=== PATIENT | female | born 1955 | race Caucasian/White ===

== ENCOUNTER 2017-05-19 08:08 | Inpatient (IN) | payer BC ==
[2017-05-18 14:20] VITALS: BMI 29.5
[~2017-05-19] VITALS: Ht 162.6 cm; Wt 78.6 kg
[2017-05-19] VITALS (23 sets, daily range): BP systolic 75–177; BP diastolic 46–101; PULSE 86–115; RESP 16–99; Ht 162.6 cm; Wt 78.6 kg
[~2017-05-19 08:08] MED LIST: ATEN50TA PO; CEFAZOLIN 1 GM INJ ONE; CEFAZOLIN 2 GM/50 ML (PMX) 50 ML IVPB SCH; PROPOFOL 200 MG INJ ONE; SIMV40TA2 PO; SOD CHLORIDE 0.9% 1,000 ML IV SCH
[2017-05-19] MEDS ORDERED: IBUP-1542 PO (08:43)
[2017-05-19] MEDS ORDERED: ASPI-664 PO (08:44)
[2017-05-19] MEDS ORDERED: LOSA1TAB21 PO (08:45)
[2017-05-19] MEDS ORDERED: OMEP40CA6 PO (08:46)
[2017-05-19] MEDS ORDERED: VERA120C2 PO (08:46)
[2017-05-19] MEDS ORDERED: BUPIVACAINE 0.25% (MPF) 30 ML INJ ONE (09:42)
[2017-05-19] MEDS ORDERED: MIDAZOLAM 1 MG/ML 2 ML INJ ONE (10:47)
[2017-05-19] MEDS ORDERED: hydrALAzine 20 MG INJ ONE (11:01)
--- NOTE | 2017-05-19 11:37 | OPR ---
Date/Time of Note Date/Time of Note DATE: 05/19/17 TIME: 11:35 Operative Report Procedure Date: May 19, 2017 Preoperative Diagnosis symptomatic gallstones Postoperative Diagnosis same Operation/Procedure Performed 1. laparoscopic cholecystectomy 2. therapeutic injection of subcutaneous local anesthesia Surgeon see signature line Sexual Assault Nurse none Anesthesia Type: general Estimated Blood Loss: 0 - 10 ml's Transfusion none Specimen gallbladder Grafts/Implants none Complications none Pt Condition Post Procedure: stable Indications This is a 62-year-old female with symptomatic gallstones. She requests surgical excision. Risks alternatives benefits and percent were discussed the patient. Patient expresses understanding and consents to the operation. Procedure Description Patient taken to the OR and prepped and draped in usual sterile fashion. Surgical timeout was performed. IV antibiotics were given. Infraumbilical transverse incision was made with a 15 blade. Dissection cautery was carried into the fascia. The fascia is grasped with Stoneham's and divided with curved Jc scissors. 0 Vicryl U stitch was placed into the fascia. Blueness on trocar is introduced. Pneumoperitoneum is established. Midepigastric 12 mm optical trocar was placed under direct visualization. Right upper quadrant upper flank 5 mm optical trochars were placed under direct visualization. Upon initial inspection there are some adhesions to the gallbladder which were taken down bluntly. The gallbladder was grasped the fundus and the lateral and our direction. Cautery was used to initiate lateral dissection. This allowed mobilization and careful dissection of the cystic duct. The cystic duct and the critical view are established. The cystic duct with thickened was divided with a 35 mm echelon vascular stapler. The staple line was reinforced with clips. The cystic artery was divided with 3 clips proximal and clip distal. The gallbladder was taken of the gallbladder bed. There is good hemostasis. The gallbladder was retrieved using Endo Catch bag. Ports removed under direct physician. 0 Vicryl U stitch was tied down. Skin is closed using skin jazmin. There appears to contains local anesthesia was injected throughout the incision site. Dry dressings were applied. Yasir VELASCO May 19, 2017 11:37
[2017-05-19] MEDS ORDERED: ETOMIDATE 20 MG INJ ONE (11:41)
[2017-05-19] MEDS ORDERED: NEOSTIGMINE 3 MG/3 ML SYRINGE ONE (11:41)
[2017-05-19] MEDS ORDERED: ROCURONIUM 50 MG INJ ONE (11:41)
[2017-05-19] MEDS ORDERED: GLYCOPYRROLATE 0.4 MG INJ ONE (11:41)
[2017-05-19] MEDS ORDERED: LIDOCAINE 2% (SDV) 5 ML INJ ONE (11:41)
[2017-05-19] MEDS ORDERED: ONDANSETRON 4 MG INJ ONE (11:42)
[2017-05-19] MEDS ORDERED: HYDROCODONE/APAP (5/325) TAB PO ONE (12:00)
[2017-05-19] MEDS ORDERED: EPHEDrine SULFATE 50 MG/5 ML SYG ONE (12:13)
[2017-05-19] MEDS ORDERED: EPHEDrine SULFATE 50 MG/5 ML SYG IV PRN (12:30)
[2017-05-19] MEDS ORDERED: ALBUTEROL/IPRATROPIUM (NEB) 3 ML AMP HHN STA (13:13)
[2017-05-19] MEDS ORDERED: ALBUTEROL 0.083% (NEB) 2.5 MG/3 ML AMP ONE (13:15)
[2017-05-19] MEDS ORDERED: FUROSEMIDE 20 MG INJ IV STA (13:16)
[2017-05-19] MEDS ORDERED: FUROSEMIDE 20 MG INJ ONE (13:16)
--- NOTE | 2017-05-19 13:31 | RADRPT ---
PROCEDURE: XR Chest. CLINICAL INDICATION: Shortness of breath. Postop. TECHNIQUE: Single frontal view. COMPARISON: 06/09/2014. FINDINGS: There is a left-sided dual lead permanent pacemaker. The heart is enlarged. There is mild right basi lar atelectasis. There is left basilar air space disease consistent with atelectasis or pneumonia. T he lungs are otherwise clear. There is no pleural effusion. There is no pneumothorax. IMPRESSION: 1. Left-sided dual lead permanent pacemaker. 2. Cardiomegaly. 3. Mild right basilar atelectasis. 4. Left basilar atelectasis or pneumonia. Clinical correlation advised. 5. Otherwise unremarkable chest radiograph. RPTAT: QQ .Shalom Lara MD, MD Date Time Electronically viewed and signed by .Shalom Lara MD, MD on 05/19/2017 13:30 .R/
[2017-05-19] MEDS ORDERED: RACEPINEPHRINE 2.25%(NEB) 0.5 ML AMP ONE (13:49)
[2017-05-19] MEDS ORDERED: RACEPINEPHRINE 2.25%(NEB) 0.5 ML AMP HHN ONE (14:00)
[2017-05-19] MEDS ORDERED: ALBUTEROL 0.083% (NEB) 2.5 MG/3 ML AMP HHN PRN (14:00)
[2017-05-19] MEDS ORDERED: ALBUTEROL/IPRATROPIUM (NEB) 3 ML AMP HHN PRN (16:00)
[2017-05-19] MEDS ORDERED: ONDANSETRON 4 MG INJ IV PRN (16:00)
[2017-05-19] MEDS ORDERED: ACETAMINOPHEN 325 MG TAB PO PRN (16:00)
[2017-05-19] MEDS ORDERED: morphine 2 MG INJ IV PRN (16:00)
[2017-05-19] MEDS ORDERED: MEPERIDINE 25 MG INJ IV ONE (16:30)
[2017-05-19] MEDS ORDERED: METHYLPREDNISOLONE 125 MG INJ IV ONE (17:00)
[2017-05-19] MEDS ORDERED: ENOXAPARIN 40 MG/0.4 ML SYG SC SCH (18:00)
[2017-05-19] MEDS ORDERED: FUROSEMIDE 20 MG INJ IV ONE (18:00)
[2017-05-19 18:11] LABS: BASOPHILS % 0.2 % (0.0-2.0); EOSINOPHILS % 0.2 % (0.0-7.0); HEMATOCRIT 34.5 % (37.0-47.0); HEMOGLOBIN 11.2 g/dl (12.0-16.0); LYMPHOCYTES # 0.9 10^3/ul (0.8-2.9); LYMPHOCYTES % 8.4 % (15.0-51.0); MEAN CORPUSCULAR HEMOGLOBIN 29.3 pg (29.0-33.0); MEAN CORPUSCULAR HGB CONC 32.5 g/dl (32.0-37.0); MEAN CORPUSCULAR VOLUME 90.3 fl (82.0-101.0); MEAN PLATELET VOLUME 9.6 fl (7.4-10.4); MONOCYTE # 0.3 10^3/ul (0.3-0.9); MONOCYTES % 2.9 % (0.0-11.0); PLATELET COUNT 323 10^3/UL (140-415); RED BLOOD COUNT 3.82 10^6/ul (4.20-5.40); RED CELL DISTRIBUTION WIDTH 13.2 % (11.5-14.5); WHITE BLOOD COUNT 10.3 10^3/ul (4.8-10.8)
[2017-05-19 18:30] LABS: ALBUMIN 3.7 g/dl (3.3-4.9); ALBUMIN/GLOBULIN RATIO 1.02; BILIRUBIN,INDIRECT 0.4 mg/dl (0-1.1); BILIRUBIN,TOTAL 0.4 mg/dl (0.2-1.3); CALCIUM 8.3 mg/dl (8.4-10.2); CREATININE 0.63 mg/dl (0.44-1.00); POTASSIUM 3.7 mmol/L (3.5-5.1); TOTAL PROTEIN 7.3 g/dl (6.1-8.1)
--- NOTE | 2017-05-19 18:33 | HP ---
DATE OF ADMISSION: 05/19/2017 CHIEF COMPLAINT: Shortness of breath and hypoxemia. HISTORY OF PRESENT ILLNESS: The patient is a 62-year-old female with history of hypertension, dysli pidemia, and history of pacemaker placement. The patient has preserved LV function as far as 2D ech ocardiogram is concerned back in 2013. Current echo report is not available. The patient was broug ht into hospital today for elective laparoscopic cholecystectomy. The patient underwent laparoscopi c cholecystectomy by Dr. Escalera. Postoperatively, the patient developed hypoxemia, tachycardia and was transferred to telemetry unit. The patient denies any chest pain. Does appear short of breath and was given Lasix 10 mg and also breathing treatment. The patient has not had any temperature spike. No reported vomiting. No reported resting leg pain. No report of any acute skin rash. No wheezi ng. The patient denies cough. No focal weakness. The patient underwent chest x-ray, which reveale d mild basilar atelectasis. The patient is being admitted for further evaluation and management. PAST MEDICAL HISTORY: As stated above. Patient does have history of diastolic heart failure back i 2013, and she was seen by Dr. Trujillo at that time, but since then, patient has been seeing Dr. Elijah Alaniz from cardiac standpoint. SOCIAL HISTORY: No smoking, no alcohol. ALLERGIES: CODEINE. HOME MEDICATIONS: Reviewed. PHYSICAL EXAMINATION: GENERAL: The patient is conscious, awake, alert, follows simple commands. VITAL SIGNS: Temperature 98.1, pulse 114, respirations 23, blood pressure 104/56, O2 saturation 94% on 2 liters nasal cannula. HEENT: No eye discharge or redness. Nose and ears normal. Oropharynx examination was deferred due to face mask. NECK: No mass. CHEST: A few bibasilar rales. CARDIOVASCULAR: S1, S2 normal. Sinus tachycardia. ABDOMEN: The patient is status post laparoscopic cholecystectomy. EXTREMITIES: No pedal edema. Pedal pulses palpable. No calf tenderness. NEUROLOGIC: The patient is awake, alert, follows simple commands, moves all extremities. PREOPERATIVE LABORATORY DATA: WBC 8.5, hemoglobin 12.6, platelets 359. Sodium 143, potassium 4.5, BUN 12, creatinine 0.6, glucose 113, AST 17, ALT 24, alkaline phosphatase 104. Coagulation profile was normal. EKG revealed normal sinus rhythm, nonspecific ST-T changes. Chest x-ray was read as above. These labs were done on 05/05/2017. IMPRESSION: Acute respiratory failure, rule out pneumonia, pulmonary embolism and congestive heart failure, as well as atelectasis. Will obtain CT pulmonary angiogram. We will continue supplemental oxygen and breathing treatment and deep venous thrombosis prophylaxis with Lovenox. Will also give a dose of Lasix. Will also obtain stat CBC, CMP, ABG, and troponin. We will also obtain echocardi ogram. I spoke with Dr. Michael Eng from a pulmonary standpoint as well as Dr. Elijah Alaniz fr om cardiac standpoint for further evaluation and management. Plan of care discussed with patient's son, Abdulkadir. Continue postoperative care as per Dr. Escalera. Darrin her recommendations will depend on patient's hospital course and recommendations from consultants. Dictated By: BENITO BACA/NTS Conf#: [id number] DID#: [id number]
[2017-05-19 18:51] LABS: AADO2 Arterial 250.2 mmHg (7.0-24.0); Allen Test ACCEPTAB; Arterial COHb 0.3 % (0.0-3.0); Arterial Fraction of Oxyhgb 92.4 % (93.0-99.0); Arterial MetHb 0.4 % (0.0-1.5); Arterial Total Hemglobin 11.9 g/dl (12.0-18.0); MODE MASK - SIMPLE
[2017-05-19] MEDS: ALBUTEROL/IPRATROPIUM (NEB) 3 ML AMP HHN SCH (19:51)
[2017-05-19] MEDS ORDERED: IOHEXOL 350MG/ML 50 ML BTL ONE (20:57)
[2017-05-19] MEDS ORDERED: SOD CHLORIDE 0.9% 100 ML ONE (20:57)
[2017-05-19] MEDS ORDERED: IOHEXOL 100 ML ONE (20:57)
--- NOTE | 2017-05-19 22:06 | RADRPT ---
PROCEDURE: CTA Chest and pulmonary angiogram. CLINICAL INDICATION: Shortness of breath TECHNIQUE: CT scan of the chest and CT pulmonary angiogram was performed on a multidetector high-r esolution CT scanner. High-resolution thin slice coronal and sagittal imaging was obtained from the axial source images. No 3-D/maximum intensity projection reformatted imaging was performed. The p atient was examined following the intravenous administration of 125 cc of Omnipaque-350. The images were reviewed on a PACS workstation. The total exam CTDI equals 19.72+ 14.91 mGy, and the total exam DLP equals 538.42 mGy-cm. One or more the following dose reduction techniques were utilized: Automated exposure control, adjus tment of the mA and / or kV according to patient's size, or use of iterative reconstruction techniqu e. COMPARISON: Chest x-ray of 05/19/2017 and CTA chest of 06/10/2014 FINDINGS: Dual chamber cardiac pacemaker with battery in the left chest wall. No filling defects suggestive of emboli are seen in main, lobar or segmental pulmonary arteries. Mild atherosclerotic changes includ ing calcification in thoracic aorta. No thoracic aortic aneurysm or dissection is seen. No enlarged mediastinal lymph nodes are seen. Less than 1 cm short-axis mediastinal lymph nodes are seen. No pl eural effusion is seen. There is bilateral lower lobe and bilateral upper lobe posterior partial at electasis/consolidation. Lingular partial atelectasis/consolidation is also seen. Cholecystectomy. D egenerative changes in thoracic spine. IMPRESSION: No evidence of pulmonary emboli. Moderately large pericardial effusion. Bilateral lower lobe and carlos ateral upper lobe posterior partial atelectasis/consolidation and lingular partial atelectasis/conso lidation. Cardiac pacemaker. Please see above. Discussed with SHIVA Perla at 10:02 p.m. on 05/19/2017 . RPTAT: HJES .Sonu Clayton MD, Date Time Electronically viewed and signed by .Sonu Clayton MD, MD on 05/19/2017 22:06 .S/
[2017-05-20] VITALS (22 sets, daily range): BP systolic 102–143; BP diastolic 60–80; PULSE 69–106; RESP 14–33
[2017-05-20] MEDS: PIPER-TAZO 3.375 GM IV (PMX) 50 ML IVPB SCH ×5 (00:21→23:55)
[2017-05-20] MEDS: ALBUTEROL/IPRATROPIUM (NEB) 3 ML AMP HHN SCH ×4 (01:24→19:24)
[2017-05-20 05:08] LABS: BASOPHILS % 0.1 % (0.0-2.0); HEMATOCRIT 31.2 % (37.0-47.0); HEMOGLOBIN 10.2 g/dl (12.0-16.0); LYMPHOCYTES # 0.9 10^3/ul (0.8-2.9); LYMPHOCYTES % 8.2 % (15.0-51.0); MEAN CORPUSCULAR HEMOGLOBIN 28.9 pg (29.0-33.0); MEAN CORPUSCULAR HGB CONC 32.7 g/dl (32.0-37.0); MEAN CORPUSCULAR VOLUME 88.4 fl (82.0-101.0); MEAN PLATELET VOLUME 9.7 fl (7.4-10.4); MONOCYTE # 0.2 10^3/ul (0.3-0.9); MONOCYTES % 1.5 % (0.0-11.0); NEUTROPHILS % 89.9 % (39.0-77.0); PLATELET COUNT 299 10^3/UL (140-415); RED BLOOD COUNT 3.53 10^6/ul (4.20-5.40); RED CELL DISTRIBUTION WIDTH 13.5 % (11.5-14.5); WHITE BLOOD COUNT 11.1 10^3/ul (4.8-10.8)
[2017-05-20 05:41] LABS: CALCIUM 8.8 mg/dl (8.4-10.2); CREATININE 0.6 mg/dl (0.44-1.00); POTASSIUM 3.7 mmol/L (3.5-5.1)
[2017-05-20 05:54] LABS: TROPONIN-I 0.173 ng/ml (0.00-0.12)
[2017-05-20] MEDS: PANTOPRAZOLE (EC) 40 MG TAB PO SCH (06:01)
[2017-05-20 06:06] LABS: THYROID STIMULATING HORMONE 0.519 MIU/L (0.465-4.680)
[2017-05-20 06:17] LABS: AADO2 Arterial 460.7 mmHg (7.0-24.0); Allen Test ACCEPTAB; Arterial Base Excess 0.7 mmol/L (-3.0-3); Arterial COHb 0.3 % (0.0-3.0); Arterial Fraction of Oxyhgb 93.2 % (93.0-99.0); Arterial HCO3 24.9 mmol/L (22.0-26.0); Arterial MetHb 0.4 % (0.0-1.5); Arterial Total Hemglobin 13.9 g/dl (12.0-18.0); MODE HFNC
--- NOTE | 2017-05-20 08:58 | PN ---
Date/Time of Note Date/Time of Note DATE: 05/20/17 TIME: 08:57 Assessment/Plan VTE Prophylaxis VTE Prophylaxis Intervention: SCD's Lines/Catheters IV Catheter Type (from Nrs): Saline Lock Assessment/Plan Chief Complaint/Hosp Course s/p lap kristina with some shivering and evaluation for shortness of breath patient with multiple medical problems with pacemaker CT scan for pe protocol showed no pe Problems: Assessment/Plan doing well from surgical standpoint and ok to start diet ok to d/c from surgical standpoint Subjective 24 Hr Interval Summary Free Text/Dictation doing well from surgical standpoint, no issues Exam/Review of Systems Vital Signs Vitals Vital Signs Date Time Temp Pulse Resp B/P Pulse Ox O2 Delivery O2 Flow Rate FiO2 05/20/17 07:38 85 22 93 80 05/20/17 06:00 122/70 High Flow 05/20/17 04:00 98.8 05/19/17 19:51 6.0 Intake and Output 05/19/17 05/19/17 05/20/17 14:59 22:59 06:59 Intake Total 800 ml 50 ml 270 ml Output Total 10 ml Balance 790 ml 50 ml 270 ml Exam clean dry intact dressings Results Result Diagram: 05/20/17 0448 05/20/17 0449 Results 24 hrs Laboratory Tests Test 05/19/17 17:51 05/19/17 17:55 05/19/17 18:00 05/20/17 04:48 White Blood Count 10.3 # 11.1 H Red Blood Count 3.82 L 3.53 L Hemoglobin 11.2 L 10.2 L Hematocrit 34.5 L 31.2 L Mean Corpuscular Volume 90.3 88.4 Mean Corpuscular Hemoglobin 29.3 28.9 L Mean Corpuscular Hemoglobin Concent 32.5 32.7 Red Cell Distribution Width 13.2 13.5 Platelet Count 323 299 Mean Platelet Volume 9.6 # 9.7 Neutrophils % 88.0 H 89.9 H Lymphocytes % 8.4 L 8.2 L Monocytes % 2.9 1.5 Eosinophils % 0.2 0.0 Basophils % 0.2 0.1 Nucleated Red Blood Cells % 0.0 0.0 Neutrophils # 9.0 H 10.0 H Lymphocytes # 0.9 0.9 Monocytes # 0.3 0.2 L Eosinophils # 0.0 0.0 Basophils # 0.0 0.0 Nucleated Red Blood Cells # 0.0 0.0 B-Type Natriuretic Peptide 388 H Sodium Level 143 Potassium Level 3.7 Chloride Level 102 Carbon Dioxide Level 28 Anion Gap 17 H Blood Urea Nitrogen 9 Creatinine 0.63 Glucose Level 128 Calcium Level 8.3 L Total Bilirubin 0.4 Direct Bilirubin 0.00 Indirect Bilirubin 0.4 Aspartate Amino Transf (AST/SGOT) 66 H Alanine Aminotransferase (ALT/SGPT) 72 H Alkaline Phosphatase 135 H Troponin I 0.067 Total Protein 7.3 Albumin 3.7 Globulin 3.60 H Albumin/Globulin Ratio 1.02 Blood Gas Specimen Source Blood arterial Arterial Blood Date Drawn 05/19/2017 6:30:00 PM Arterial Blood pH (Temp corrected) 7.442 Arterial Blood pCO2 (Temp correct) 37.5 Arterial Blood pO2 (Temp corrected) 64.1 L Arterial Blood HCO3 25.0 Arterial Blood Base Excess 1.0 Arterial Blood Oxygen Saturation 93.1 L João Test ACCEPTAB Arterial Blood Gas Puncture Site Right Radial Arterial Blood Carboxyhemoglobin 0.3 Arterial Blood Methemoglobin 0.4 Blood Gas A-a O2 Differential 250.2 H Oxyhemoglobin Percent 92.4 L Total Hemoglobin 11.9 L Blood Gas Temperature 37.0 Blood Gas Modality MASK - SIMPLE FiO2 50.0 Blood Gas Notified Whom DT Blood Gas Notified Time 05/19/2017 6:48:00 PM Test 05/20/17 04:49 05/20/17 06:00 Sodium Level 140 Potassium Level 3.7 Chloride Level 102 Carbon Dioxide Level 30 Anion Gap 12 Blood Urea Nitrogen 11 Creatinine 0.60 Glucose Level 195 Calcium Level 8.8 Troponin I 0.173 *H Thyroid Stimulating Hormone (TSH) 0.519 Blood Gas Specimen Source Blood arterial Arterial Blood Date Drawn 05/20/2017 6:00:52 AM Arterial Blood pH (Temp corrected) 7.426 Arterial Blood pCO2 (Temp correct) 38.8 Arterial Blood pO2 (Temp corrected) 69.0 L Arterial Blood HCO3 24.9 Arterial Blood Base Excess 0.7 Arterial Blood Oxygen Saturation 93.9 L João Test ACCEPTAB Arterial Blood Gas Puncture Site Right Radial Arterial Blood Carboxyhemoglobin 0.3 Arterial Blood Methemoglobin 0.4 Blood Gas A-a O2 Differential 460.7 H Oxyhemoglobin Percent 93.2 Total Hemoglobin 13.9 Blood Gas Temperature 37.0 Blood Gas Actual Respiration Rate 27 Blood Gas Modality HFNC FiO2 80.0 Blood Gas Notified Whom MA Blood Gas Notified Time 05/20/2017 6:17:27 AM Medications Medications Current Medications Ondansetron HCl (Zofran Inj) 4 mg Q6H PRN IV NAUSEA AND/OR VOMITING; Start 05/19/17 at 16:00 Pantoprazole (Protonix Tab) 40 mg DAILY@06 PO Last administered on 05/20/17 06:01; Admin Dose 40 MG; Start 05/20/17 at 06:00 Acetaminophen (Tylenol Tab) 650 mg Q4H PRN PO PAIN AND OR ELEVATED TEMP; Start 05/19/17 at 16:00 Morphine Sulfate (morphine) 2 mg Q3H PRN IV PAIN LEVEL 4-7; Start 05/19/17 at 16:00 Enoxaparin Sodium 40 mg 40 mg DAILY SC ; Start 05/20/17 at 09:00 Piperacillin Sod/ Tazobactam Sod (Zosyn 3.375gm/ 50 ml (Pmx)) 50 ml @ 100 mls/ hr Q6 IVPB Last administered on 05/20/17 06:01; Admin Dose 100 MLS/HR; Start 05/20/17 at 00:00 Yasir VELASCO May 20, 2017 08:58
[2017-05-20] MEDS: ENOXAPARIN 40 MG/0.4 ML SYG SC SCH (09:41)
--- NOTE | 2017-05-20 10:23 | PN ---
Date/Time of Note Date/Time of Note DATE: 05/20/17 TIME: 10:13 Assessment/Plan VTE Prophylaxis VTE Prophylaxis Intervention: SCD's Lines/Catheters IV Catheter Type (from [facility]): Saline Lock Urinary Cath still in place: No Assessment/Plan Chief Complaint/Hosp Course Patient is awake alert, patient is currently on high flow oxygen without distress, denies any pain. Pending cardiology evaluation and possible procedure today. Problems: Assessment/Plan -Acute hypoxemic respiratory failure. CTA is negative for PE. Possible pneumonia. Continue Zosyn. Dr. Eng is following in pulmonology consultation. Continue ICU care and high flow oxygen. -Status post laparoscopic cholecystectomy by Dr. Escalera on 05/19. -Permanent pacemaker, Dr. Elijah Alaniz is following patient in cardiology consultation. Further recommendations based on clinical course. Plan of care discussed with Dr. Mccullough. Exam/Review of Systems Vital Signs Vitals Vital Signs Date Time Temp Pulse Resp B/P Pulse Ox O2 Delivery O2 Flow Rate FiO2 05/20/17 09:00 85 32 124/71 93 High Flow 05/20/17 08:00 98.2 05/20/17 07:38 80 05/19/17 19:51 6.0 Intake and Output 05/19/17 05/19/17 05/20/17 14:59 22:59 06:59 Intake Total 800 ml 50 ml 270 ml Output Total 10 ml Balance 790 ml 50 ml 270 ml Exam Constitutional: alert, oriented Head: normocephalic Neck: supple Respiratory: diminished breath sounds Cardiovascular: nl pulses, regular rate and rhythm Gastrointestinal: other (Status post surgery), soft Extremities: normal pulses Neurological: nl mental status Results Result Diagram: 05/20/17 0448 05/20/17 0449 Results 24 hrs Laboratory Tests Test 05/19/17 17:51 05/19/17 17:55 05/19/17 18:00 05/20/17 04:48 White Blood Count 10.3 # 11.1 H Red Blood Count 3.82 L 3.53 L Hemoglobin 11.2 L 10.2 L Hematocrit 34.5 L 31.2 L Mean Corpuscular Volume 90.3 88.4 Mean Corpuscular Hemoglobin 29.3 28.9 L Mean Corpuscular Hemoglobin Concent 32.5 32.7 Red Cell Distribution Width 13.2 13.5 Platelet Count 323 299 Mean Platelet Volume 9.6 # 9.7 Neutrophils % 88.0 H 89.9 H Lymphocytes % 8.4 L 8.2 L Monocytes % 2.9 1.5 Eosinophils % 0.2 0.0 Basophils % 0.2 0.1 Nucleated Red Blood Cells % 0.0 0.0 Neutrophils # 9.0 H 10.0 H Lymphocytes # 0.9 0.9 Monocytes # 0.3 0.2 L Eosinophils # 0.0 0.0 Basophils # 0.0 0.0 Nucleated Red Blood Cells # 0.0 0.0 B-Type Natriuretic Peptide 388 H Sodium Level 143 Potassium Level 3.7 Chloride Level 102 Carbon Dioxide Level 28 Anion Gap 17 H Blood Urea Nitrogen 9 Creatinine 0.63 Glucose Level 128 Calcium Level 8.3 L Total Bilirubin 0.4 Direct Bilirubin 0.00 Indirect Bilirubin 0.4 Aspartate Amino Transf (AST/SGOT) 66 H Alanine Aminotransferase (ALT/SGPT) 72 H Alkaline Phosphatase 135 H Troponin I 0.067 Total Protein 7.3 Albumin 3.7 Globulin 3.60 H Albumin/Globulin Ratio 1.02 Blood Gas Specimen Source Blood arterial Arterial Blood Date Drawn 05/19/2017 6:30:00 PM Arterial Blood pH (Temp corrected) 7.442 Arterial Blood pCO2 (Temp correct) 37.5 Arterial Blood pO2 (Temp corrected) 64.1 L Arterial Blood HCO3 25.0 Arterial Blood Base Excess 1.0 Arterial Blood Oxygen Saturation 93.1 L João Test ACCEPTAB Arterial Blood Gas Puncture Site Right Radial Arterial Blood Carboxyhemoglobin 0.3 Arterial Blood Methemoglobin 0.4 Blood Gas A-a O2 Differential 250.2 H Oxyhemoglobin Percent 92.4 L Total Hemoglobin 11.9 L Blood Gas Temperature 37.0 Blood Gas Modality MASK - SIMPLE FiO2 50.0 Blood Gas Notified Whom DT Blood Gas Notified Time 05/19/2017 6:48:00 PM Test 05/20/17 04:49 05/20/17 06:00 Sodium Level 140 Potassium Level 3.7 Chloride Level 102 Carbon Dioxide Level 30 Anion Gap 12 Blood Urea Nitrogen 11 Creatinine 0.60 Glucose Level 195 Calcium Level 8.8 Troponin I 0.173 *H Thyroid Stimulating Hormone (TSH) 0.519 Blood Gas Specimen Source Blood arterial Arterial Blood Date Drawn 05/20/2017 6:00:52 AM Arterial Blood pH (Temp corrected) 7.426 Arterial Blood pCO2 (Temp correct) 38.8 Arterial Blood pO2 (Temp corrected) 69.0 L Arterial Blood HCO3 24.9 Arterial Blood Base Excess 0.7 Arterial Blood Oxygen Saturation 93.9 L João Test ACCEPTAB Arterial Blood Gas Puncture Site Right Radial Arterial Blood Carboxyhemoglobin 0.3 Arterial Blood Methemoglobin 0.4 Blood Gas A-a O2 Differential 460.7 H Oxyhemoglobin Percent 93.2 Total Hemoglobin 13.9 Blood Gas Temperature 37.0 Blood Gas Actual Respiration Rate 27 Blood Gas Modality HFNC FiO2 80.0 Blood Gas Notified Whom MA Blood Gas Notified Time 05/20/2017 6:17:27 AM Medications Medications Current Medications Ondansetron HCl (Zofran Inj) 4 mg Q6H PRN IV NAUSEA AND/OR VOMITING; Start 05/19/17 at 16:00 Pantoprazole (Protonix Tab) 40 mg DAILY@06 PO Last administered on 05/20/17 06:01; Admin Dose 40 MG; Start 05/20/17 at 06:00 Acetaminophen (Tylenol Tab) 650 mg Q4H PRN PO PAIN AND OR ELEVATED TEMP; Start 05/19/17 at 16:00 Morphine Sulfate (morphine) 2 mg Q3H PRN IV PAIN LEVEL 4-7; Start 05/19/17 at 16:00 Enoxaparin Sodium 40 mg 40 mg DAILY SC Last administered on 05/20/17 09:41; Admin Dose 40 MG; Start 05/20/17 at 09:00 Piperacillin Sod/ Tazobactam Sod (Zosyn 3.375gm/ 50 ml (Pmx)) 50 ml @ 100 mls/ hr Q6 IVPB Last administered on 05/20/17 06:01; Admin Dose 100 MLS/HR; Start 05/20/17 at 00:00 FRANKIE JOHN May 20, 2017 10:23
--- NOTE | 2017-05-20 14:09 | CONS ---
DATE OF ADMISSION: 05/19/2017 DATE OF CONSULTATION: TYPE OF CONSULTATION: Pulmonary. REASON FOR CONSULTATION: Shortness of breath. Thank you, Dr. Mccullough, for this consultation. HISTORY OF PRESENT ILLNESS: This is a 62-year-old lady with history of hypertension, hyperlipidemia , history of pacemaker, came in for elective cholecystectomy. Postoperatively, had significant hypo xemia requiring initiation of noninvasive positive pressure ventilation on high flow, transferred to intensive care unit for further monitoring. No prior history of lung disease. SOCIAL HISTORY: Nonsmoker, no alcohol, no history of drug use. FAMILY HISTORY: Noncontributory. The surgery itself was unremarkable. CT angiogram was performed demonstrating no pulmonary embolus; however, the patient had a large pericardial effusion. Clinically no evidence of tamponade. PAST MEDICAL HISTORY: As above. MEDICATIONS: Per chart. ALLERGIES: Codeine. REVIEW OF SYSTEMS: A 12-point review of systems negative other than that mentioned above. PHYSICAL EXAMINATION: GENERAL: Well-nourished, well-developed lady, comfortable at rest, no acute distress. VITAL SIGNS: Temperature 98, pulse 86, blood pressure 123/70, O2 saturation 96% on high flow 70%. NECK: Supple, no JVD or lymphadenopathy. CARDIAC: S1, S2, no added sounds or murmurs. CHEST: Diminished air entry bilaterally. ABDOMEN: Soft, nontender. No guarding or rebound. EXTREMITIES: No cyanosis, clubbing, 1+ edema. NEUROLOGIC: Generalized weakness. LABORATORY DATA: White count 11.1, hemoglobin 10.2, platelets of 299, BUN 11, creatinine 0.6. ABG: pH 7.42, pCO2 of 38, pO2 of 69 on high flow. Chest x-ray bibasilar atelectasis, but no evidence of pulmonary embolus. PLAN: 1. Patient to continue with incentive spirometry. 2. Decrease FIO2 as tolerated. 3. Echocardiogram. 4. Cardiology evaluation and possible pericardiocentesis versus window. 5. Deep venous thrombosis and gastrointestinal prophylaxis. Dictated By: STEPHANI RILEY MD SV/RENÉ Conf#: [id number] DID#: [id number] CC: MAGDALENO VELASCO MD; BENITO MCCULLOUGH MD;*EndCC*
--- NOTE | 2017-05-20 15:31 | RADRPT ---
Echocardiogram Report Patient Name: YOLY FOLEY Gender: Female Date: 1955 Study Date: 20-May-2017 Surgical Garment Inspector: Radha Hopkins RDCS Location: [facility] Ref. Physician: BENITO YUSUF Quality: Adequate Procedures: Transthoracic echocardiogram with complete 2D, M-Mode, and doppler examination. Indications: Shortness of breath. 2D/M Mode Doppler Measurement Value Normal Ranges Measurement Value Normal Ranges LVIDd 2D 4.5 3.5 - 5.6 cm AV Mean Giles 1.2 m/sec LVIDs 2D 2.8 2.1 - 4.1 cm AV Mean PG 6.7 mmHg LVPWd 2D 1.0 0.6 - 1.1 cm AV Peak Giles 1.9 m/sec IVSd 2D 1.0 0.6 - 1.1 cm AV Peak PG 14.3 mmHg AoR Diam 2D 2.9 2.0 - 3.7 cm AV VTI 33.1 cm EDV 2D 90.1 cm3 MV E Peak Giles 0.7 m/sec ESV 2D 22.0 cm3 MV A Peak Giles 1.0 m/sec LA Dimen 2D 3.1 2.3 - 4.0 cm MV E/A 0.7 MV Decel Time 225 msec MV Decel Guadalupe 3 MV E/A 0.7 TR Peak Giles 2.8 m/sec TR Peak PG 32.2 mmHg RVSP 35.0 mmHg Findings Left Ventricle: Normal left ventricular systolic function. Normal left ventricular cavity size. Normal left ventricular wall thickness. Ejection fraction is visually estimated at 65 - 70 %. Tissue Doppler/Mitral Doppler indices are consistent with impaired relaxation (Stage I diastolic dysfunction). Right Ventricle: Normal right ventricular size. Normal right ventricular systolic function. Pacemaker right heart. Left Atrium: The left atrium is normal in size. Right Atrium: The right atrium is normal in size. Mitral Valve: Normal appearance of the mitral valve. Mild mitral annular calcification. Trace mitral regurgitation. Aortic Valve: Normal appearance of the aortic valve. No significant aortic stenosis or insufficiency. Tricuspid Valve: Normal appearance of the tricuspid valve. Estimated peak PA systolic pressure 35 mmHg. There is mild tricuspid regurgitation. Pulmonic Valve: Normal pulmonic valve appearance. Pericardium: Moderate pericardial effusion. TV respiratory flow velocity variation consistent with tamponade. Aorta: Normal aortic root. IVC: Normal size and normal respiratory collapse consistent with normal right atrial pressure. Conclusions 1.Normal left ventricular systolic function. Normal left ventricular cavity size. Normal left ventricular wall thickness. Ejection fraction is visually estimated at 65 - 70 %. Tissue Doppler/Mitral Doppler indices are consistent with impaired relaxation (Stage I diastolic dysfunction). 2.Normal appearance of the mitral valve. Mild mitral annular calcification. Trace mitral regurgitation. 3.Normal appearance of the aortic valve. No significant aortic stenosis or insufficiency. 4.Normal appearance of the tricuspid valve. Estimated peak PA systolic pressure 35 mmHg. There is mild tricuspid regurgitation. 5.Moderate to large pericardial effusion, mostly seen around LV. TV respiratory flow velocity variation consistent with tamponade. Electronically Signed By: Chaitanya Trujillo 20-May-2017 15:30:39 -0800 Patient Name: YOLY FOLEY Study Date: 20-May-2017 [id number]
[2017-05-20] MEDS ORDERED: MIDAZOLAM 1 MG/ML 2 ML INJ ONE (17:36)
[2017-05-20] MEDS ORDERED: FENTAnyl 50 MCG/ML VIAL ONE (17:36)
[2017-05-20] MEDS ORDERED: LIDOCAINE 1% (MDV) 20 ML INJ ONE (17:36)
[2017-05-20] MEDS ORDERED: SOD CHLORIDE 0.9% 500 ML ONE (18:53)
[2017-05-20] MEDS ORDERED: CEFAZOLIN 1 GM/50 ML (PMX) 50 ML IVPB ONE (18:54)
--- NOTE | 2017-05-20 19:11 | SIPON ---
Date/Time of Note Date/Time of Note DATE: 05/20/17 TIME: 19:09 Operative Report Preoperative Diagnosis sob and pericardial effusion Postoperative Diagnosis same Operation/Procedure Performed pericardiocenthesis. Surgeon see signature line hair assistant none Anesthesia: moderate sedation, other Estimated blood loss: none Transfusion Required none Specimen pericardial fluid Grafts/Implants none Complications none ELICEO VELAZQUEZ MD May 20, 2017 19:11
--- NOTE | 2017-05-20 19:15 | CONS ---
Date/Time of Note Date/Time of Note DATE: 05/20/17 TIME: 19:11 Assessment/Plan Assessment/Plan Chief Complaint/Hosp Course I was recommeded to do a pericardiocenthesis. the risks and benefts explained. Problems: Consultation Date/Type/Reason Admit Date/Time May 19, 2017 at 13:22 Reason for Consultation sob and pericardial effusion Hx of Present Illness This is a 62 y/o female with s/p cholecystectomy. then with pericardial effusion. Social History Smoking Status: Never smoker Exam/Review of Systems Vital Signs Vitals Vital Signs Date Time Temp Pulse Resp B/P Pulse Ox O2 Delivery O2 Flow Rate FiO2 05/20/17 17:00 69 24 122/64 98 High Flow 05/20/17 16:00 98.4 05/20/17 13:22 60 05/19/17 19:51 6.0 Intake and Output 05/19/17 05/19/17 05/20/17 14:59 22:59 06:59 Intake Total 800 ml 50 ml 270 ml Output Total 10 ml Balance 790 ml 50 ml 270 ml Exam Constitutional: alert, oriented Head: normocephalic Eyes: EOMI, nl conjunctiva Neck: non-tender, supple Results Result Diagram: 05/20/17 0448 05/20/17 0449 Results 24 hrs Laboratory Tests Test 05/20/17 04:48 05/20/17 04:49 05/20/17 06:00 White Blood Count 11.1 H Red Blood Count 3.53 L Hemoglobin 10.2 L Hematocrit 31.2 L Mean Corpuscular Volume 88.4 Mean Corpuscular Hemoglobin 28.9 L Mean Corpuscular Hemoglobin Concent 32.7 Red Cell Distribution Width 13.5 Platelet Count 299 Mean Platelet Volume 9.7 Neutrophils % 89.9 H Lymphocytes % 8.2 L Monocytes % 1.5 Eosinophils % 0.0 Basophils % 0.1 Nucleated Red Blood Cells % 0.0 Neutrophils # 10.0 H Lymphocytes # 0.9 Monocytes # 0.2 L Eosinophils # 0.0 Basophils # 0.0 Nucleated Red Blood Cells # 0.0 Sodium Level 140 Potassium Level 3.7 Chloride Level 102 Carbon Dioxide Level 30 Anion Gap 12 Blood Urea Nitrogen 11 Creatinine 0.60 Glucose Level 195 Calcium Level 8.8 Magnesium Level 1.8 Troponin I 0.173 *H Thyroid Stimulating Hormone (TSH) 0.519 Blood Gas Specimen Source Blood arterial Arterial Blood Date Drawn 05/20/2017 6:00:52 AM Arterial Blood pH (Temp corrected) 7.426 Arterial Blood pCO2 (Temp correct) 38.8 Arterial Blood pO2 (Temp corrected) 69.0 L Arterial Blood HCO3 24.9 Arterial Blood Base Excess 0.7 Arterial Blood Oxygen Saturation 93.9 L João Test ACCEPTAB Arterial Blood Gas Puncture Site Right Radial Arterial Blood Carboxyhemoglobin 0.3 Arterial Blood Methemoglobin 0.4 Blood Gas A-a O2 Differential 460.7 H Oxyhemoglobin Percent 93.2 Total Hemoglobin 13.9 Blood Gas Temperature 37.0 Blood Gas Actual Respiration Rate 27 Blood Gas Modality HFNC FiO2 80.0 Blood Gas Notified Whom MA Blood Gas Notified Time 05/20/2017 6:17:27 AM Medications Medications Current Medications Ondansetron HCl (Zofran Inj) 4 mg Q6H PRN IV NAUSEA AND/OR VOMITING; Start 05/19/17 at 16:00 Pantoprazole (Protonix Tab) 40 mg DAILY@06 PO Last administered on 05/20/17 06:01; Admin Dose 40 MG; Start 05/20/17 at 06:00 Acetaminophen (Tylenol Tab) 650 mg Q4H PRN PO PAIN AND OR ELEVATED TEMP; Start 05/19/17 at 16:00 Morphine Sulfate (morphine) 2 mg Q3H PRN IV PAIN LEVEL 4-7; Start 05/19/17 at 16:00 Enoxaparin Sodium 40 mg 40 mg DAILY SC Last administered on 05/20/17 09:41; Admin Dose 40 MG; Start 05/20/17 at 09:00 Piperacillin Sod/ Tazobactam Sod (Zosyn 3.375gm/ 50 ml (Pmx)) 50 ml @ 100 mls/ hr Q6 IVPB Last administered on 05/20/17 13:03; Admin Dose 100 MLS/HR; Start 05/20/17 at 00:00 ELICEO VELAZQUEZ MD May 20, 2017 19:15
--- NOTE | 2017-05-20 19:28 | RADRPT ---
PROCEDURE: XR Chest. CLINICAL INDICATION: Shortness of breath. Post pericardiocentesis. TECHNIQUE: Single frontal view. COMPARISON: Chest x-ray dated 05/19/2017. CT scan of the chest dated 05/19/2017. FINDINGS: There is a left-sided dual lead permanent pacemaker. The heart is enlarged. There is mild pulmonary edema and left basilar atelectasis, unchanged. The lungs are otherwise clear. There is a curvilinear foreign body overlying the main pulmonary artery measuring approximately 1.7 cm in length. There is no pleural effusion. There is no pneumothorax. IMPRESSION: 1. Left-sided dual lead permanent pacemaker. 2. Curvilinear foreign body overlying the main pulmonary artery measuring approximately 1.7 cm in l ength. Clinical correlation advised. Correlation with CT scan of the chest should be considered. 3. Cardiomegaly. 4. Mild pulmonary edema and left basilar atelectasis, unchanged. 5. Otherwise unremarkable study. Call report: A call report of the findings was attempted to be made to Dr. Alaniz on 05/20/2017 at 1925 hours. A message was left for the Doctor on his voicemail. RPTAT: QQ .Shalom Lara MD, MD Date Time Electronically viewed and signed by .Shalom Lara MD, on 05/20/2017 19:28 .R/
[2017-05-20] MEDS ORDERED: METHYLPREDNISOLONE 125 MG INJ IV ONE (19:30)
[2017-05-20 19:59] LABS: BASOPHILS % 0.1 % (0.0-2.0); HEMATOCRIT 35.1 % (37.0-47.0); HEMOGLOBIN 11.3 g/dl (12.0-16.0); LYMPHOCYTES # 2.1 10^3/ul (0.8-2.9); LYMPHOCYTES % 12.8 % (15.0-51.0); MEAN CORPUSCULAR HEMOGLOBIN 29.4 pg (29.0-33.0); MEAN CORPUSCULAR HGB CONC 32.2 g/dl (32.0-37.0); MEAN CORPUSCULAR VOLUME 91.2 fl (82.0-101.0); MEAN PLATELET VOLUME 9.5 fl (7.4-10.4); MONOCYTE # 0.7 10^3/ul (0.3-0.9); MONOCYTES % 4.6 % (0.0-11.0); NEUTROPHIL # 13.2 10^3/ul (1.6-7.5); NEUTROPHILS % 82.1 % (39.0-77.0); PLATELET COUNT 311 10^3/UL (140-415); RED BLOOD COUNT 3.85 10^6/ul (4.20-5.40); RED CELL DISTRIBUTION WIDTH 13.5 % (11.5-14.5); WHITE BLOOD COUNT 16.1 10^3/ul (4.8-10.8)
[2017-05-20 20:22] LABS: ALBUMIN 3.8 g/dl (3.3-4.9); BILIRUBIN,INDIRECT 0.5 mg/dl (0-1.1); BILIRUBIN,TOTAL 0.5 mg/dl (0.2-1.3); CALCIUM 8.7 mg/dl (8.4-10.2); CREATININE 0.72 mg/dl (0.44-1.00); TOTAL PROTEIN 7.6 g/dl (6.1-8.1)
[2017-05-21] VITALS (26 sets, daily range): BP systolic 116–148; BP diastolic 69–92; PULSE 77–150; RESP 15–37
[2017-05-21] MEDS: ALBUTEROL/IPRATROPIUM (NEB) 3 ML AMP HHN SCH ×4 (01:32→20:20)
[2017-05-21] MEDS: PANTOPRAZOLE (EC) 40 MG TAB PO SCH (05:40)
[2017-05-21] MEDS: PIPER-TAZO 3.375 GM IV (PMX) 50 ML IVPB SCH ×3 (05:40→17:25)
[2017-05-21 06:43] LABS: BASOPHILS % 0.1 % (0.0-2.0); HEMATOCRIT 33.1 % (37.0-47.0); HEMOGLOBIN 10.5 g/dl (12.0-16.0); LYMPHOCYTES # 0.8 10^3/ul (0.8-2.9); LYMPHOCYTES % 5.4 % (15.0-51.0); MEAN CORPUSCULAR HEMOGLOBIN 28.5 pg (29.0-33.0); MEAN CORPUSCULAR HGB CONC 31.7 g/dl (32.0-37.0); MEAN CORPUSCULAR VOLUME 89.7 fl (82.0-101.0); MONOCYTE # 0.2 10^3/ul (0.3-0.9); MONOCYTES % 1.2 % (0.0-11.0); NEUTROPHIL # 14.2 10^3/ul (1.6-7.5); NEUTROPHILS % 92.8 % (39.0-77.0); PLATELET COUNT 327 10^3/UL (140-415); RED BLOOD COUNT 3.69 10^6/ul (4.20-5.40); RED CELL DISTRIBUTION WIDTH 13.6 % (11.5-14.5); WHITE BLOOD COUNT 15.2 10^3/ul (4.8-10.8)
--- NOTE | 2017-05-21 07:13 | RADRPT ---
PROCEDURE: XR Chest. CLINICAL INDICATION: Shortness of breath. TECHNIQUE: Single frontal view. COMPARISON: 05/20/2017. FINDINGS: There is a left-sided dual lead permanent pacemaker. The heart is enlarged. There is mild pulmonary edema and left basilar atelectasis, slightly improved. The lungs are otherwise clear. There is a curvilinear foreign body overlying the main pulmonary artery measuring approximately 1.7 cm in length. There is no pleural effusion. There is no pneumothorax. IMPRESSION: 1. Left-sided dual lead permanent pacemaker. 2. Curvilinear foreign body overlying the main pulmonary artery measuring approximately 1.7 cm in le ngth. Clinical correlation advised. This may be due to a pericardial drainage catheter. 3. Cardiomegaly. 4. Mild pulmonary edema and left basilar atelectasis, slightly improved. 5. Otherwise unremarkable study. RPTAT: QQ .Shalom Lara MD, MD Date Time Electronically viewed and signed by .Shalom Lara MD, on 05/21/2017 07:13 .R/
[2017-05-21] MEDS ORDERED: POTASSIUM CHLORIDE (SR) 20 MEQ TAB PO STA (07:25)
[2017-05-21] MEDS ORDERED: FUROSEMIDE 20 MG INJ IV ONE (07:30)
[2017-05-21] MEDS ORDERED: predniSONE 20 MG TAB PO ONE (07:30)
[2017-05-21 07:31] LABS: CALCIUM 8.4 mg/dl (8.4-10.2); CREATININE 0.66 mg/dl (0.44-1.00); POTASSIUM 3.7 mmol/L (3.5-5.1)
[2017-05-21 07:53] LABS: AADO2 Arterial 302.2 mmHg (7.0-24.0); Allen Test ACCEPTAB; Arterial Base Excess 3.6 mmol/L (-3.0-3); Arterial COHb 0.3 % (0.0-3.0); Arterial Fraction of Oxyhgb 95.2 % (93.0-99.0); Arterial HCO3 28.4 mmol/L (22.0-26.0); Arterial MetHb 0.3 % (0.0-1.5); Arterial Total Hemglobin 13.3 g/dl (12.0-18.0); MODE HFNC
--- NOTE | 2017-05-21 08:12 | PN ---
Date/Time of Note Date/Time of Note DATE: 05/21/17 TIME: 08:11 Assessment/Plan VTE Prophylaxis VTE Prophylaxis Intervention: other Lines/Catheters [facility] [place] [facility] Urinary Cath still in place: No Assessment/Plan Chief Complaint/Hosp Course -Acute hypoxemic respiratory failure. CTA is negative for PE. Possible pneumonia. Continue Zosyn. Dr. Eng is following in pulmonology consultation. Continue ICU care and high flow oxygen. -Status post laparoscopic cholecystectomy by Dr. Escalera on 05/19. -Permanent pacemaker, Dr. Elijah Alaniz is following patient in cardiology consultation. Problems: Subjective 24 Hr Interval Summary Free Text/Dictation Patient has no complaints, doing well Exam/Review of Systems Vital Signs Vitals Vital Signs Date Time Temp Pulse Resp B/P Pulse Ox O2 Delivery O2 Flow Rate FiO2 05/21/17 07:00 84 28 125/75 High Flow 05/21/17 05:15 94 60 05/21/17 04:00 98.5 05/19/17 19:51 6.0 Intake and Output 05/20/17 05/20/17 05/21/17 14:59 22:59 06:59 Intake Total 290 ml 200 ml 120 ml Output Total 50 ml Balance 290 ml 200 ml 70 ml Exam Constitutional: well developed Head: atraumatic, normocephalic Neck: supple Respiratory: clear to auscultation Cardiovascular: regular rate and rhythm Gastrointestinal: non-tender, soft Extremities: normal pulses Results Result Diagram: 05/21/17 0553 05/21/17 0553 Results 24 hrs Laboratory Tests Test 05/20/17 19:45 05/21/17 05:53 05/21/17 07:00 White Blood Count 16.1 #H 15.2 H Red Blood Count 3.85 L 3.69 L Hemoglobin 11.3 L 10.5 L Hematocrit 35.1 L 33.1 L Mean Corpuscular Volume 91.2 89.7 Mean Corpuscular Hemoglobin 29.4 28.5 L Mean Corpuscular Hemoglobin Concent 32.2 31.7 L Red Cell Distribution Width 13.5 13.6 Platelet Count 311 327 Mean Platelet Volume 9.5 10.0 Neutrophils % 82.1 H 92.8 H Lymphocytes % 12.8 L 5.4 L Monocytes % 4.6 1.2 Eosinophils % 0.0 0.0 Basophils % 0.1 0.1 Nucleated Red Blood Cells % 0.0 0.0 Neutrophils # 13.2 H 14.2 H Lymphocytes # 2.1 0.8 Monocytes # 0.7 0.2 L Eosinophils # 0.0 0.0 Basophils # 0.0 0.0 Nucleated Red Blood Cells # 0.0 0.0 Sodium Level 142 143 Potassium Level 4.0 3.7 Chloride Level 103 103 Carbon Dioxide Level 29 28 Anion Gap 14 16 Blood Urea Nitrogen 15 18 Creatinine 0.72 0.66 Glucose Level 123 # 180 Calcium Level 8.7 8.4 Total Bilirubin 0.5 Direct Bilirubin 0.00 Indirect Bilirubin 0.5 Aspartate Amino Transf (AST/SGOT) 68 H Alanine Aminotransferase (ALT/SGPT) 93 H Alkaline Phosphatase 157 H Total Protein 7.6 Albumin 3.8 Globulin 3.80 H Albumin/Globulin Ratio 1.00 Blood Gas Specimen Source Blood arterial Arterial Blood Date Drawn 05/21/2017 7:35:38 AM Arterial Blood pH (Temp corrected) 7.434 Arterial Blood pCO2 (Temp correct) 43.3 Arterial Blood pO2 (Temp corrected) 78.0 L Arterial Blood HCO3 28.4 H Arterial Blood Base Excess 3.6 H Arterial Blood Oxygen Saturation 95.8 João Test ACCEPTAB Arterial Blood Gas Puncture Site Left Radial Arterial Blood Carboxyhemoglobin 0.3 Arterial Blood Methemoglobin 0.3 Blood Gas A-a O2 Differential 302.2 H Oxyhemoglobin Percent 95.2 Total Hemoglobin 13.3 Blood Gas Temperature 37.0 Blood Gas Modality HFNC FiO2 60.0 Blood Gas Notified Whom OTONIEL STEVENSON Blood Gas Notified Time 05/21/2017 7:53:19 AM Medications Medications Current Medications Ondansetron HCl (Zofran Inj) 4 mg Q6H PRN IV NAUSEA AND/OR VOMITING; Start 05/19/17 at 16:00 Pantoprazole (Protonix Tab) 40 mg DAILY@06 PO Last administered on 05/21/17t 05:40; Admin Dose 40 MG; Start 05/20/17 at 06:00 Acetaminophen (Tylenol Tab) 650 mg Q4H PRN PO PAIN AND OR ELEVATED TEMP; Start 05/19/17 at 16:00 Morphine Sulfate (morphine) 2 mg Q3H PRN IV PAIN LEVEL 4-7; Start 05/19/17 at 16:00 Enoxaparin Sodium 40 mg 40 mg DAILY SC Last administered on 05/20/17 09:41; Admin Dose 40 MG; Start 05/20/17 at 09:00 Piperacillin Sod/ Tazobactam Sod (Zosyn 3.375gm/ 50 ml (Pmx)) 50 ml @ 100 mls/ hr Q6 IVPB Last administered on 05/21/17 05:40; Admin Dose 100 MLS/HR; Start 05/20/17 at 00:00 JUAN JOSE EMJIAS May 21, 2017 08:12
[2017-05-21] MEDS: ENOXAPARIN 40 MG/0.4 ML SYG SC SCH (08:57)
--- NOTE | 2017-05-21 10:06 | CONS ---
Date/Time of Note Date/Time of Note DATE: 05/21/17 TIME: 10:05 Assessment/Plan Assessment/Plan Chief Complaint/Hosp Course I was recommeded to do a pericardiocenthesis. the risks and benefts explained. 05/21/2017 The pt is doing well reviewed the echo and removed the pericardial tube. Problems: Consultation Date/Type/Reason Admit Date/Time May 19, 2017 at 13:22 Initial Consult Date yesterdday Reason for Consultation pericardial effusion Exam/Review of Systems Vital Signs Vitals Vital Signs Date Time Temp Pulse Resp B/P Pulse Ox O2 Delivery O2 Flow Rate FiO2 05/21/17 09:00 89 17 145/92 92 High Flow 05/21/17 08:15 60 05/21/17 08:00 98.7 05/19/17 19:51 6.0 Intake and Output 05/20/17 05/20/17 05/21/17 14:59 22:59 06:59 Intake Total 290 ml 200 ml 120 ml Output Total 50 ml Balance 290 ml 200 ml 70 ml Results Result Diagram: 05/21/17 0553 05/21/17 0553 Results 24 hrs Laboratory Tests Test 05/20/17 19:45 05/21/17 05:53 05/21/17 07:00 White Blood Count 16.1 #H 15.2 H Red Blood Count 3.85 L 3.69 L Hemoglobin 11.3 L 10.5 L Hematocrit 35.1 L 33.1 L Mean Corpuscular Volume 91.2 89.7 Mean Corpuscular Hemoglobin 29.4 28.5 L Mean Corpuscular Hemoglobin Concent 32.2 31.7 L Red Cell Distribution Width 13.5 13.6 Platelet Count 311 327 Mean Platelet Volume 9.5 10.0 Neutrophils % 82.1 H 92.8 H Lymphocytes % 12.8 L 5.4 L Monocytes % 4.6 1.2 Eosinophils % 0.0 0.0 Basophils % 0.1 0.1 Nucleated Red Blood Cells % 0.0 0.0 Neutrophils # 13.2 H 14.2 H Lymphocytes # 2.1 0.8 Monocytes # 0.7 0.2 L Eosinophils # 0.0 0.0 Basophils # 0.0 0.0 Nucleated Red Blood Cells # 0.0 0.0 Sodium Level 142 143 Potassium Level 4.0 3.7 Chloride Level 103 103 Carbon Dioxide Level 29 28 Anion Gap 14 16 Blood Urea Nitrogen 15 18 Creatinine 0.72 0.66 Glucose Level 123 # 180 Calcium Level 8.7 8.4 Total Bilirubin 0.5 Direct Bilirubin 0.00 Indirect Bilirubin 0.5 Aspartate Amino Transf (AST/SGOT) 68 H Alanine Aminotransferase (ALT/SGPT) 93 H Alkaline Phosphatase 157 H Total Protein 7.6 Albumin 3.8 Globulin 3.80 H Albumin/Globulin Ratio 1.00 Blood Gas Specimen Source Blood arterial Arterial Blood Date Drawn 05/21/2017 7:35:38 AM Arterial Blood pH (Temp corrected) 7.434 Arterial Blood pCO2 (Temp correct) 43.3 Arterial Blood pO2 (Temp corrected) 78.0 L Arterial Blood HCO3 28.4 H Arterial Blood Base Excess 3.6 H Arterial Blood Oxygen Saturation 95.8 João Test ACCEPTAB Arterial Blood Gas Puncture Site Left Radial Arterial Blood Carboxyhemoglobin 0.3 Arterial Blood Methemoglobin 0.3 Blood Gas A-a O2 Differential 302.2 H Oxyhemoglobin Percent 95.2 Total Hemoglobin 13.3 Blood Gas Temperature 37.0 Blood Gas Modality HFNC FiO2 60.0 Blood Gas Notified Whom OTONIEL STEVENSON Blood Gas Notified Time 05/21/2017 7:53:19 AM Medications Medications Current Medications Ondansetron HCl (Zofran Inj) 4 mg Q6H PRN IV NAUSEA AND/OR VOMITING; Start 05/19/17 at 16:00 Pantoprazole (Protonix Tab) 40 mg DAILY@06 PO Last administered on 05/21/17 05:40; Admin Dose 40 MG; Start 05/20/17 at 06:00 Acetaminophen (Tylenol Tab) 650 mg Q4H PRN PO PAIN AND OR ELEVATED TEMP; Start 05/19/17 at 16:00 Morphine Sulfate (morphine) 2 mg Q3H PRN IV PAIN LEVEL 4-7; Start 05/19/17 at 16:00 Enoxaparin Sodium 40 mg 40 mg DAILY SC Last administered on 05/21/17 08:57; Admin Dose 40 MG; Start 05/20/17 at 09:00 Piperacillin Sod/ Tazobactam Sod (Zosyn 3.375gm/ 50 ml (Pmx)) 50 ml @ 100 mls/ hr Q6 IVPB Last administered on 05/21/17 05:40; Admin Dose 100 MLS/HR; Start 05/20/17 at 00:00 ELICEO VELAZQUEZ MD May 21, 2017 10:06
--- NOTE | 2017-05-21 11:32 | CONS ---
Date/Time of Note Date/Time of Note DATE: 05/21/17 TIME: 11:30 Consult Date/Type/Reason Admit Date/Time May 19, 2017 at 13:22 Initial Consult Date Type of Consultation: Pulmonary Subjective Status post pericardial drainage, improving hypoxemia Objective Vital Signs Date Time Temp Pulse Resp B/P Pulse Ox O2 Delivery O2 Flow Rate FiO2 05/21/17 09:00 89 17 145/92 92 High Flow 05/21/17 08:15 60 05/21/17 08:00 98.7 05/19/17 19:51 6.0 Intake and Output 05/20/17 05/20/17 05/21/17 14:59 22:59 06:59 Intake Total 290 ml 200 ml 120 ml Output Total 50 ml Balance 290 ml 200 ml 70 ml Exam PHYSICAL EXAMINATION: GENERAL: Well-nourished, well-developed lady, comfortable at rest on high flow oxygen NECK: Supple, no JVD or lymphadenopathy. CARDIAC: S1, S2, no added sounds or murmurs. CHEST: Diminished air entry bilaterally. ABDOMEN: Soft, nontender. No guarding or rebound. EXTREMITIES: No cyanosis, clubbing, 1+ edema. NEUROLOGIC: Generalized weakness. Results/Medications Result Diagram: 05/21/17 0553 05/21/17 0553 Results 24 hrs Laboratory Tests Test 05/20/17 19:45 05/21/17 05:53 05/21/17 07:00 05/21/17 10:35 White Blood Count 16.1 #H 15.2 H Red Blood Count 3.85 L 3.69 L Hemoglobin 11.3 L 10.5 L Hematocrit 35.1 L 33.1 L Mean Corpuscular Volume 91.2 89.7 Mean Corpuscular Hemoglobin 29.4 28.5 L Mean Corpuscular Hemoglobin Concent 32.2 31.7 L Red Cell Distribution Width 13.5 13.6 Platelet Count 311 327 Mean Platelet Volume 9.5 10.0 Neutrophils % 82.1 H 92.8 H Lymphocytes % 12.8 L 5.4 L Monocytes % 4.6 1.2 Eosinophils % 0.0 0.0 Basophils % 0.1 0.1 Nucleated Red Blood Cells % 0.0 0.0 Neutrophils # 13.2 H 14.2 H Lymphocytes # 2.1 0.8 Monocytes # 0.7 0.2 L Eosinophils # 0.0 0.0 Basophils # 0.0 0.0 Nucleated Red Blood Cells # 0.0 0.0 Sodium Level 142 143 Potassium Level 4.0 3.7 Chloride Level 103 103 Carbon Dioxide Level 29 28 Anion Gap 14 16 Blood Urea Nitrogen 15 18 Creatinine 0.72 0.66 Glucose Level 123 # 180 Calcium Level 8.7 8.4 Total Bilirubin 0.5 Direct Bilirubin 0.00 Indirect Bilirubin 0.5 Aspartate Amino Transf (AST/SGOT) 68 H Alanine Aminotransferase (ALT/SGPT) 93 H Alkaline Phosphatase 157 H Total Protein 7.6 Albumin 3.8 Globulin 3.80 H Albumin/Globulin Ratio 1.00 Blood Gas Specimen Source Blood arterial Arterial Blood Date Drawn 05/21/2017 7:35:38 AM Arterial Blood pH (Temp corrected) 7.434 Arterial Blood pCO2 (Temp correct) 43.3 Arterial Blood pO2 (Temp corrected) 78.0 L Arterial Blood HCO3 28.4 H Arterial Blood Base Excess 3.6 H Arterial Blood Oxygen Saturation 95.8 João Test ACCEPTAB Arterial Blood Gas Puncture Site Left Radial Arterial Blood Carboxyhemoglobin 0.3 Arterial Blood Methemoglobin 0.3 Blood Gas A-a O2 Differential 302.2 H Oxyhemoglobin Percent 95.2 Total Hemoglobin 13.3 Blood Gas Temperature 37.0 Blood Gas Modality HFNC FiO2 60.0 Blood Gas Notified Whom OTONIEL STEVENSON Blood Gas Notified Time 05/21/2017 7:53:19 AM Troponin I 0.083 Medications Current Medications Ondansetron HCl (Zofran Inj) 4 mg Q6H PRN IV NAUSEA AND/OR VOMITING; Start 05/19/17 at 16:00 Pantoprazole (Protonix Tab) 40 mg DAILY@06 PO Last administered on 05/21/17 05:40; Admin Dose 40 MG; Start 05/20/17 at 06:00 Acetaminophen (Tylenol Tab) 650 mg Q4H PRN PO PAIN AND OR ELEVATED TEMP; Start 05/19/17 at 16:00 Morphine Sulfate (morphine) 2 mg Q3H PRN IV PAIN LEVEL 4-7; Start 05/19/17 at 16:00 Enoxaparin Sodium 40 mg 40 mg DAILY SC Last administered on 05/21/17 08:57; Admin Dose 40 MG; Start 05/20/17 at 09:00 Piperacillin Sod/ Tazobactam Sod (Zosyn 3.375gm/ 50 ml (Pmx)) 50 ml @ 100 mls/ hr Q6 IVPB Last administered on 05/21/17t 05:40; Admin Dose 100 MLS/HR; Start 05/20/17 at 00:00 Assessment/Plan Chief Complaint/Hosp Course Assessment 1. Status post laparoscopic cholecystectomy 2. Postoperative hypoxemic respiratory failure with bibasilar atelectasis 3. Moderate pericardial effusion without tamponade physiology no status post pericardial window Plan 1. Await pericardial fluid studies 2. Encourage out of bed 3. Decrease O2 as tolerated Disposition Keep in ICU today This was discussed with cardiology and nursing staff. Problems: STEPHANI RILEY MD, [facility] May 21, 2017 11:32
--- NOTE | 2017-05-21 12:22 | OPR ---
DATE OF OPERATION: 05/20/2017 INDICATION FOR THE PROCEDURE: Pericardial effusion, resulting in shortness of breath. Dr. Riley had requested for pericardiocentesis to be done because it was compressing against the left lung. PROCEDURE: 1. Pericardiocentesis. 2. Echo guidance during the procedure. 3. 2D echo. 4. Color Doppler images performed. 5. CW and PW images performed. 6. Defibrillator pad placements anteriorly and posteriorly. 7. Fluoroscopy and fluoroscopic use in order to guide needle placement to the vessel. 8. Removal of 400 mL of pericardial fluid, which was reddish, pinkish serosanguineous. 9. Placement of a tube into the pericardium for drainage overnight. DESCRIPTION OF PROCEDURE: After informed consent was obtained, the patient was brought to the [facility] catheterization laboratory where the patient was placed on the table. The patient's subxiphoid r egion was prepped and draped in the usual sterile fashion. Following this, the patient then had a m icropuncture needle placed into the subxiphoid region with the use of fluoroscopy as well as ultraso und and the patient had a wire placed followed by dilators and then a pigtail catheter in order to r emove 400 mL of serosanguineous fluid. No complications occurred. The tube was then sutured onto t he skin. The patient left to go to the ICU. IMPRESSION: Successful pericardiocentesis performed with no complications. Dictated By: ELICEO VELAZQUEZ MD LP/NTS Conf#: [id number] DID#: [id number] CC: MAGDALENO VELASCO MD; STEPHANI RILEY MD;*End*
--- NOTE | 2017-05-21 12:26 | OPR ---
DATE OF OPERATION: 05/21/2017 INDICATION: To remove the pericardiocentesis tube. PROCEDURE: 1. Removal of the pericardiocentesis tube. 2. Repeat pericardiocentesis from the tube that was left in in order to remove the remaining fluid. 3. O2 sat monitoring and blood pressure monitoring continuously. After informed consent was obtained, the patient was already in the ICU. The region of interest was already prepped and draped in usual sterile fashion. Following this, the suture was cut with an 11 blade followed by removal of the tube. No complications occurred. Blood pressure was stable and she was stable. Dictated By: ELICEO VELAZQUEZ MD, LP/NTS Conf#: [id number] DID#: [id number]
[2017-05-22] VITALS (25 sets, daily range): BP systolic 127–170; BP diastolic 71–122; PULSE 70–101; RESP 15–33
[2017-05-22] MEDS: ALBUTEROL/IPRATROPIUM (NEB) 3 ML AMP HHN SCH ×4 (01:17→20:09)
[2017-05-22] MEDS: PANTOPRAZOLE (EC) 40 MG TAB PO SCH (05:51)
[2017-05-22] MEDS: PIPER-TAZO 3.375 GM IV (PMX) 50 ML IVPB SCH ×4 (05:51→17:17)
[2017-05-22 06:21] LABS: BASOPHILS % 0.1 % (0.0-2.0); HEMATOCRIT 32.7 % (37.0-47.0); HEMOGLOBIN 10.5 g/dl (12.0-16.0); LYMPHOCYTES # 2.3 10^3/ul (0.8-2.9); MEAN CORPUSCULAR HEMOGLOBIN 28.8 pg (29.0-33.0); MEAN CORPUSCULAR HGB CONC 32.1 g/dl (32.0-37.0); MEAN CORPUSCULAR VOLUME 89.8 fl (82.0-101.0); MEAN PLATELET VOLUME 9.8 fl (7.4-10.4); MONOCYTE # 0.8 10^3/ul (0.3-0.9); MONOCYTES % 5.2 % (0.0-11.0); NEUTROPHIL # 11.2 10^3/ul (1.6-7.5); PLATELET COUNT 324 10^3/UL (140-415); RED BLOOD COUNT 3.64 10^6/ul (4.20-5.40); RED CELL DISTRIBUTION WIDTH 13.4 % (11.5-14.5); WHITE BLOOD COUNT 14.4 10^3/ul (4.8-10.8)
[2017-05-22 06:50] LABS: MAGNESIUM 2.2 mg/dl (1.7-2.5); PHOSPHORUS 3.5 mg/dl (2.5-4.9)
[2017-05-22 06:51] LABS: CALCIUM 8.7 mg/dl (8.4-10.2); CREATININE 0.76 mg/dl (0.44-1.00)
[2017-05-22] MEDS: ENOXAPARIN 40 MG/0.4 ML SYG SC SCH (08:14)
--- NOTE | 2017-05-22 08:38 | RADRPT ---
PROCEDURE: XR Chest. CLINICAL INDICATION: Pneumonia, congestive heart failure. TECHNIQUE: Single frontal view of the chest was obtained COMPARISON: Chest radiograph dated June 09, 2014. FINDINGS: Pacemaker device overlying the left chest wall. There is stable mild cardiomegaly. There is a small left pleural effusion and/or subsegmental atelectasis. A superimposed pneumonia can not be excluded. The osseous structures are grossly unremarkable. IMPRESSION: 1. Small left pleural effusion and/or subsegmental atelectasis. A superimposed basilar pneumonia ca nnot be excluded. RPTAT:AAJJ Physician Mj Date Time Electronically viewed and signed by Physician Mj on 05/22/2017 08:38 QL/
--- NOTE | 2017-05-22 09:17 | PN ---
Date/Time of Note Date/Time of Note DATE: 05/22/17 TIME: 09:16 Assessment/Plan VTE Prophylaxis VTE Prophylaxis Intervention: other Lines/Catheters IV [facility]from [facility] Peripheral IV Urinary Cath still in place: No Assessment/Plan Chief Complaint/Hosp Course -Acute hypoxemic respiratory failure. CTA is negative for PE. Possible pneumonia. Continue Zosyn. Dr. Eng is following in pulmonology consultation. Continue ICU care and high flow oxygen. -Status post laparoscopic cholecystectomy by Dr. Escalera on 05/19. -Permanent pacemaker, Dr. Elijah Alaniz is following patient in cardiology consultation. Problems: Subjective 24 Hr Interval Summary Free Text/Dictation Patient doing well, denies abdominal pain Exam/Review of Systems Vital Signs Vitals Vital Signs Date Time Temp Pulse Resp B/P Pulse Ox O2 Delivery O2 Flow Rate FiO2 05/22/17 08:00 98.7 70 21 150/85 87 High Flow 05/22/17 05:34 40 05/19/17 19:51 6.0 Intake and Output 05/21/17 05/21/17 05/22/17 15:00 23:00 07:00 Intake Total 600 ml 340 ml 320 ml Output Total 600 ml Balance 0 ml 340 ml 320 ml Exam Constitutional: well developed Head: atraumatic, normocephalic Neck: supple Respiratory: clear to auscultation Cardiovascular: regular rate and rhythm Gastrointestinal: non-tender, soft Extremities: normal pulses Results Result Diagram: 05/22/17 0555 05/22/17 0555 Results 24 hrs Laboratory Tests Test 05/21/17 10:35 05/22/17 05:55 Troponin I 0.083 White Blood Count 14.4 H Red Blood Count 3.64 L Hemoglobin 10.5 L Hematocrit 32.7 L Mean Corpuscular Volume 89.8 Mean Corpuscular Hemoglobin 28.8 L Mean Corpuscular Hemoglobin Concent 32.1 Red Cell Distribution Width 13.4 Platelet Count 324 Mean Platelet Volume 9.8 Neutrophils % 78.0 H Lymphocytes % 16.0 Monocytes % 5.2 Eosinophils % 0.0 Basophils % 0.1 Nucleated Red Blood Cells % 0.0 Neutrophils # 11.2 H Lymphocytes # 2.3 Monocytes # 0.8 Eosinophils # 0.0 Basophils # 0.0 Nucleated Red Blood Cells # 0.0 Sodium Level 143 Potassium Level 4.0 Chloride Level 105 Carbon Dioxide Level 32 H Anion Gap 10 # Blood Urea Nitrogen 23 H Creatinine 0.76 Glucose Level 141 Calcium Level 8.7 Phosphorus Level 3.5 Magnesium Level 2.2 Medications Medications Current Medications Ondansetron HCl (Zofran Inj) 4 mg Q6H PRN IV NAUSEA AND/OR VOMITING; Start 05/19/17 at 16:00 Pantoprazole (Protonix Tab) 40 mg DAILY@06 PO Last administered on 05/22/17 05:51; Admin Dose 40 MG; Start 05/20/17 at 06:00 Acetaminophen (Tylenol Tab) 650 mg Q4H PRN PO PAIN AND OR ELEVATED TEMP; Start 05/19/17 at 16:00 Morphine Sulfate (morphine) 2 mg Q3H PRN IV PAIN LEVEL 4-7; Start 05/19/17 at 16:00 Enoxaparin Sodium 40 mg 40 mg DAILY SC Last administered on 05/22/17 08:14; Admin Dose 40 MG; Start 05/20/17 at 09:00 Piperacillin Sod/ Tazobactam Sod (Zosyn 3.375gm/ 50 ml (Pmx)) 50 ml @ 100 mls/ hr Q6 IVPB Last administered on 05/22/17 05:51; Admin Dose 100 MLS/HR; Start 05/20/17 at 00:00 JUAN JOSE MEJIAS May 22, 2017 09:17
--- NOTE | 2017-05-22 10:15 | CONS ---
Date/Time of Note Date/Time of Note DATE: 05/22/17 TIME: 10:14 Consult Date/Type/Reason Admit Date/Time May 19, 2017 at 13:22 Type of Consultation: Pulmonary Subjective Sitting out of bed in chair. No overnight events. No chest pain or shortness of breath. Decreasing O2 requirements. Objective Vital Signs Date Time Temp Pulse Resp B/P Pulse Ox O2 Delivery O2 Flow Rate FiO2 05/22/17 08:35 79 20 95 40 05/22/17 08:00 98.7 150/85 High Flow 05/19/17 19:51 6.0 Intake and Output 05/21/17 05/21/17 05/22/17 15:00 23:00 07:00 Intake Total 600 ml 340 ml 320 ml Output Total 600 ml Balance 0 ml 340 ml 320 ml Exam PHYSICAL EXAMINATION: GENERAL: Well-nourished, well-developed lady, comfortable at rest on high flow oxygen NECK: Supple, no JVD or lymphadenopathy. CARDIAC: S1, S2, no added sounds or murmurs. CHEST: Diminished air entry bilaterally. ABDOMEN: Soft, nontender. No guarding or rebound. EXTREMITIES: No cyanosis, clubbing, 1+ edema. NEUROLOGIC: Generalized weakness. Results/Medications Result Diagram: 05/22/17 0555 05/22/17 0555 Results 24 hrs Laboratory Tests Test 05/21/17 10:35 05/22/17 05:55 Troponin I 0.083 White Blood Count 14.4 H Red Blood Count 3.64 L Hemoglobin 10.5 L Hematocrit 32.7 L Mean Corpuscular Volume 89.8 Mean Corpuscular Hemoglobin 28.8 L Mean Corpuscular Hemoglobin Concent 32.1 Red Cell Distribution Width 13.4 Platelet Count 324 Mean Platelet Volume 9.8 Neutrophils % 78.0 H Lymphocytes % 16.0 Monocytes % 5.2 Eosinophils % 0.0 Basophils % 0.1 Nucleated Red Blood Cells % 0.0 Neutrophils # 11.2 H Lymphocytes # 2.3 Monocytes # 0.8 Eosinophils # 0.0 Basophils # 0.0 Nucleated Red Blood Cells # 0.0 Sodium Level 143 Potassium Level 4.0 Chloride Level 105 Carbon Dioxide Level 32 H Anion Gap 10 # Blood Urea Nitrogen 23 H Creatinine 0.76 Glucose Level 141 Calcium Level 8.7 Phosphorus Level 3.5 Magnesium Level 2.2 Medications Current Medications Ondansetron HCl (Zofran Inj) 4 mg Q6H PRN IV NAUSEA AND/OR VOMITING; Start 05/19/17 at 16:00 Pantoprazole (Protonix Tab) 40 mg DAILY@06 PO Last administered on 05/22/17 05:51; Admin Dose 40 MG; Start 05/20/17 at 06:00 Acetaminophen (Tylenol Tab) 650 mg Q4H PRN PO PAIN AND OR ELEVATED TEMP; Start 05/19/17 at 16:00 Morphine Sulfate (morphine) 2 mg Q3H PRN IV PAIN LEVEL 4-7; Start 05/19/17 at 16:00 Enoxaparin Sodium 40 mg 40 mg DAILY SC Last administered on 05/22/17 08:14; Admin Dose 40 MG; Start 05/20/17 at 09:00 Piperacillin Sod/ Tazobactam Sod (Zosyn 3.375gm/ 50 ml (Pmx)) 50 ml @ 100 mls/ hr Q6 IVPB Last administered on 05/22/17 05:51; Admin Dose 100 MLS/HR; Start 05/20/17 at 00:00 Assessment/Plan Chief Complaint/Hosp Course Assessment 1. Status post laparoscopic cholecystectomy 2. Postoperative hypoxemic respiratory failure with bibasilar atelectasis 3. Moderate pericardial effusion without tamponade physiology status post pericardial drainage Plan 1. Await pericardial fluid studies 2. Encourage out of bed 3. Decrease O2 as tolerated Disposition Probably stable for transfer to telemetry this afternoon. Problems: STEPHANI RILEY MD, [facility] May 22, 2017 10:15
[2017-05-23] VITALS (24 sets, daily range): BP systolic 139–168; BP diastolic 63–96; PULSE 79–98; RESP 18–29
[2017-05-23] MEDS: PIPER-TAZO 3.375 GM IV (PMX) 50 ML IVPB SCH ×4 (00:07→17:25)
[2017-05-23] MEDS: ALBUTEROL/IPRATROPIUM (NEB) 3 ML AMP HHN SCH ×4 (01:59→19:54)
[2017-05-23] MEDS: PANTOPRAZOLE (EC) 40 MG TAB PO SCH (05:22)
[2017-05-23 05:54] LABS: BASOPHILS % 0.2 % (0.0-2.0); EOSINOPHILS # 0.3 10^3/ul (0.0-0.5); EOSINOPHILS % 2.6 % (0.0-7.0); HEMATOCRIT 34.9 % (37.0-47.0); HEMOGLOBIN 11.4 g/dl (12.0-16.0); LYMPHOCYTES # 3.3 10^3/ul (0.8-2.9); LYMPHOCYTES % 30.3 % (15.0-51.0); MEAN CORPUSCULAR HEMOGLOBIN 29.2 pg (29.0-33.0); MEAN CORPUSCULAR HGB CONC 32.7 g/dl (32.0-37.0); MEAN CORPUSCULAR VOLUME 89.3 fl (82.0-101.0); MEAN PLATELET VOLUME 9.5 fl (7.4-10.4); MONOCYTE # 0.7 10^3/ul (0.3-0.9); MONOCYTES % 6.3 % (0.0-11.0); NEUTROPHIL # 6.5 10^3/ul (1.6-7.5); PLATELET COUNT 342 10^3/UL (140-415); RED BLOOD COUNT 3.91 10^6/ul (4.20-5.40); RED CELL DISTRIBUTION WIDTH 13.4 % (11.5-14.5); WHITE BLOOD COUNT 10.9 10^3/ul (4.8-10.8)
[2017-05-23 06:16] LABS: CALCIUM 8.4 mg/dl (8.4-10.2); CREATININE 0.68 mg/dl (0.44-1.00); POTASSIUM 3.6 mmol/L (3.5-5.1)
--- NOTE | 2017-05-23 07:51 | RADRPT ---
PROCEDURE: XR Chest. CLINICAL INDICATION: Cough. Pneumonia. TECHNIQUE: Single portable view of the chest was obtained. COMPARISON: 05/22/2017 and 05/20/2017 FINDINGS: Cardiac/vascular structures: Stable enlarged cardiomediastinal silhouette. Left-sided dual lead pac emaker. Pulmonary: Left basilar airspace opacity. No pleural effusion. No evidence of pneumothorax. Osseous structures: Normal Soft tissues: Normal IMPRESSION: Left basilar airspace opacity representing atelectasis or pneumonia. RPTAT:AAJJ Physician Yobany Date Time Electronically viewed and signed by Corin Lowery Physician on 05/23/2017 07:51 /
[2017-05-23] MEDS: ENOXAPARIN 40 MG/0.4 ML SYG SC SCH (08:29)
--- NOTE | 2017-05-23 08:59 | CONS ---
Date/Time of Note Date/Time of Note DATE: 05/23/17 TIME: 08:58 Consult Date/Type/Reason Admit Date/Time May 19, 2017 at 13:22 Type of Consultation: Pulmonary Subjective Patient remains stable overnight. Decreasing FiO2 now down to 3 L nasal cannula. No chest pain or shortness of breath. Objective Vital Signs Date Time Temp Pulse Resp B/P Pulse Ox O2 Delivery O2 Flow Rate FiO2 05/23/17 08:30 88 25 96 05/23/17 08:00 143/86 Nasal Cannula 3.0 05/23/17 07:30 98.7 05/22/17 09:40 30 Intake and Output 05/22/17 05/22/17 05/23/17 15:00 23:00 07:00 Intake Total 50 ml 250 ml 200 ml Balance 50 ml 250 ml 200 ml Exam PHYSICAL EXAMINATION: GENERAL: Well-nourished, well-developed lady, comfortable at rest on cannula oxygen NECK: Supple, no JVD or lymphadenopathy. CARDIAC: S1, S2, no added sounds or murmurs. CHEST: Diminished air entry bilaterally. ABDOMEN: Soft, nontender. No guarding or rebound. EXTREMITIES: No cyanosis, clubbing, 1+ edema. NEUROLOGIC: Generalized weakness. Results/Medications Result Diagram: 05/23/17 0510 05/23/17 0510 Results 24 hrs Laboratory Tests Test 05/23/17 05:10 White Blood Count 10.9 #H Red Blood Count 3.91 L Hemoglobin 11.4 L Hematocrit 34.9 L Mean Corpuscular Volume 89.3 Mean Corpuscular Hemoglobin 29.2 Mean Corpuscular Hemoglobin Concent 32.7 Red Cell Distribution Width 13.4 Platelet Count 342 Mean Platelet Volume 9.5 Neutrophils % 60.0 Lymphocytes % 30.3 Monocytes % 6.3 Eosinophils % 2.6 Basophils % 0.2 Nucleated Red Blood Cells % 0.0 Neutrophils # 6.5 Lymphocytes # 3.3 H Monocytes # 0.7 Eosinophils # 0.3 Basophils # 0.0 Nucleated Red Blood Cells # 0.0 Sodium Level 141 Potassium Level 3.6 Chloride Level 105 Carbon Dioxide Level 29 Anion Gap 11 Blood Urea Nitrogen 17 Creatinine 0.68 Glucose Level 134 Calcium Level 8.4 Medications Current Medications Ondansetron HCl (Zofran Inj) 4 mg Q6H PRN IV NAUSEA AND/OR VOMITING; Start 05/19/17 at 16:00 Pantoprazole (Protonix Tab) 40 mg DAILY@06 PO Last administered on 05/23/17 05:22; Admin Dose 40 MG; Start 05/20/17 at 06:00 Acetaminophen (Tylenol Tab) 650 mg Q4H PRN PO PAIN AND OR ELEVATED TEMP; Start 05/19/17 at 16:00 Morphine Sulfate (morphine) 2 mg Q3H PRN IV PAIN LEVEL 4-7; Start 05/19/17 at 16:00 Enoxaparin Sodium 40 mg 40 mg DAILY SC Last administered on 05/23/17 08:29; Admin Dose 40 MG; Start 05/20/17 at 09:00 Piperacillin Sod/ Tazobactam Sod (Zosyn 3.375gm/ 50 ml (Pmx)) 50 ml @ 100 mls/ hr Q6 IVPB Last administered on 05/23/17 05:22; Admin Dose 100 MLS/HR; Start 05/20/17 at 00:00 Assessment/Plan Chief Complaint/Hosp Course Assessment 1. Status post laparoscopic cholecystectomy 2. Postoperative hypoxemic respiratory failure with bibasilar atelectasis, improving hypoxemic respiratory failure. 3. Moderate pericardial effusion without tamponade physiology status post pericardial drainage Plan 1. Await pericardial fluid studies 2. Encourage out of bed 3. Decrease O2 as tolerated Disposition Stable for transfer to telemetry. Encourage ambulation. Problems: STEPHANI RILEY MD, [facility] May 23, 2017 08:59
--- NOTE | 2017-05-23 10:27 | PN ---
Date/Time of Note Date/Time of Note DATE: 05/23/17 TIME: 10:26 Assessment/Plan VTE Prophylaxis VTE Prophylaxis Intervention: SCD's Lines/Catheters IV C[facility] Type [facility]from [facility] Saline Lock Urinary Cath still in place: No Assessment/Plan Chief Complaint/Hosp Course s/p lap kristina with some shivering and evaluation for shortness of breath patient with multiple medical problems with pacemaker CT scan for pe protocol showed no pe Problems: Assessment/Plan had pulmonary issues and finally weaning off O2 and will possibly transfer to [facility] Subjective 24 Hr Interval Summary Free Text/Dictation pulmonary issues now resolving, weaning off off and possible transfer to [facility] from surgical standpoint tolerating diet and additional no issues Exam/Review of Systems Vital Signs Vitals Vital Signs Date Time Temp Pulse Resp B/P Pulse Ox O2 Delivery O2 Flow Rate FiO2 05/23/17 09:45 97 Room Air 05/23/17 09:00 91 22 157/93 3.0 05/23/17 07:30 98.7 05/22/17 09:40 30 Intake and Output 05/22/17 05/22/17 05/23/17 14:59 22:59 06:59 Intake Total 100 ml 250 ml 200 ml Balance 100 ml 250 ml 200 ml Exam c/d/i Results Result Diagram: 05/23/17 0510 05/23/17 0510 Results 24 hrs Laboratory Tests Test 05/23/17 05:10 White Blood Count 10.9 #H Red Blood Count 3.91 L Hemoglobin 11.4 L Hematocrit 34.9 L Mean Corpuscular Volume 89.3 Mean Corpuscular Hemoglobin 29.2 Mean Corpuscular Hemoglobin Concent 32.7 Red Cell Distribution Width 13.4 Platelet Count 342 Mean Platelet Volume 9.5 Neutrophils % 60.0 Lymphocytes % 30.3 Monocytes % 6.3 Eosinophils % 2.6 Basophils % 0.2 Nucleated Red Blood Cells % 0.0 Neutrophils # 6.5 Lymphocytes # 3.3 H Monocytes # 0.7 Eosinophils # 0.3 Basophils # 0.0 Nucleated Red Blood Cells # 0.0 Sodium Level 141 Potassium Level 3.6 Chloride Level 105 Carbon Dioxide Level 29 Anion Gap 11 Blood Urea Nitrogen 17 Creatinine 0.68 Glucose Level 134 Calcium Level 8.4 Medications Medications Current Medications Ondansetron HCl (Zofran Inj) 4 mg Q6H PRN IV NAUSEA AND/OR VOMITING; Start 05/19/17 at 16:00 Pantoprazole (Protonix Tab) 40 mg DAILY@06 PO Last administered on 05/23/17 05:22; Admin Dose 40 MG; Start 05/20/17 at 06:00 Acetaminophen (Tylenol Tab) 650 mg Q4H PRN PO PAIN AND OR ELEVATED TEMP; Start 05/19/17 at 16:00 Morphine Sulfate (morphine) 2 mg Q3H PRN IV PAIN LEVEL 4-7; Start 05/19/17 at 16:00 Enoxaparin Sodium 40 mg 40 mg DAILY SC Last administered on 05/23/17 08:29; Admin Dose 40 MG; Start 05/20/17 at 09:00 Piperacillin Sod/ Tazobactam Sod (Zosyn 3.375gm/ 50 ml (Pmx)) 50 ml @ 100 mls/ hr Q6 IVPB Last administered on 05/23/17 05:22; Admin Dose 100 MLS/HR; Start 05/20/17 at 00:00 Yasir VELASCO May 23, 2017 10:27
--- NOTE | 2017-05-23 15:35 | PN ---
Date/Time of Note Date/Time of Note DATE: 05/23/17 TIME: 15:29 Assessment/Plan VTE Prophylaxis VTE Prophylaxis Intervention: LMWH Lines/Catheters [facility] Saline Lock Urinary Cath still in place: No Assessment/Plan Chief Complaint/Hosp Course Patient is comfortable on supplemental oxygen, as any chest pain denies any shortness of breath, continue to monitor on telemetry floor. PT eval. Assessment/Plan -Postoperative hypoxemic respiratory failure. CTA is negative for PE. Dr. Eng is following in pulmonology consultation. -Moderate pericardial effusion, status post pericardial drainage on 05/21. Dr. Alaniz is following patient in cardiology consultation. -Status post laparoscopic cholecystectomy by Dr. Escalera on 05/19. -Permanent pacemaker, no acute issues Further recommendations based on clinical course. Plan of care discussed with Dr. Mccullough. Problems: Exam/Review of Systems Vital Signs Vitals Vital Signs Date Time Temp Pulse Resp B/P Pulse Ox O2 Delivery O2 Flow Rate FiO2 05/23/17 14:00 98 25 141/72 90 Nasal Cannula 3.0 05/23/17 13:25 21 05/23/17 12:00 98.8 Intake and Output 05/22/17 05/22/17 05/23/17 15:00 23:00 07:00 Intake Total 50 ml 250 ml 200 ml Balance 50 ml 250 ml 200 ml Exam Constitutional: alert, oriented Respiratory: diminished breath sounds Cardiovascular: nl pulses, regular rate and rhythm Gastrointestinal: other (Status post surgery), soft Extremities: normal pulses Results Result Diagram: 05/23/17 0510 05/23/17 0510 Results 24 hrs Laboratory Tests Test 05/23/17 05:10 White Blood Count 10.9 #H Red Blood Count 3.91 L Hemoglobin 11.4 L Hematocrit 34.9 L Mean Corpuscular Volume 89.3 Mean Corpuscular Hemoglobin 29.2 Mean Corpuscular Hemoglobin Concent 32.7 Red Cell Distribution Width 13.4 Platelet Count 342 Mean Platelet Volume 9.5 Neutrophils % 60.0 Lymphocytes % 30.3 Monocytes % 6.3 Eosinophils % 2.6 Basophils % 0.2 Nucleated Red Blood Cells % 0.0 Neutrophils # 6.5 Lymphocytes # 3.3 H Monocytes # 0.7 Eosinophils # 0.3 Basophils # 0.0 Nucleated Red Blood Cells # 0.0 Sodium Level 141 Potassium Level 3.6 Chloride Level 105 Carbon Dioxide Level 29 Anion Gap 11 Blood Urea Nitrogen 17 Creatinine 0.68 Glucose Level 134 Calcium Level 8.4 Medications Medications Current Medications Ondansetron HCl (Zofran Inj) 4 mg Q6H PRN IV NAUSEA AND/OR VOMITING; Start 05/19/17 at 16:00 Acetaminophen (Tylenol Tab) 650 mg Q4H PRN PO PAIN AND OR ELEVATED TEMP; Start 05/19/17 at 16:00 Morphine Sulfate (morphine) 2 mg Q3H PRN IV PAIN LEVEL 4-7; Start 05/19/17 at 16:00 Enoxaparin Sodium 40 mg 40 mg DAILY SC Last administered on 05/23/17 08:29; Admin Dose 40 MG; Start 05/20/17 at 09:00 Piperacillin Sod/ Tazobactam Sod (Zosyn 3.375gm/ 50 ml (Pmx)) 50 ml @ 100 mls/ hr Q6 IVPB Last administered on 05/23/17 12:41; Admin Dose 100 MLS/HR; Start 05/20/17 at 00:00 FRANKIE JOHN May 23, 2017 15:35
--- NOTE | 2017-05-23 15:57 | RADRPT ---
Echocardiogram Report Patient Name: YOLY FOLEY Gender: Female Date: 1955 Study Date: 22-May-2017 Deli Slicer: PASHA Location: I Ref. Physician: ELICEO VELAZQUEZ Quality: Adequate Procedures: Transthoracic echocardiogram examination, limited follow up for S/P pericardiocentesis. Indications: Pericardial Effusion. Findings Pericardium: Trivial effusion which now appears smaller than 05/21/17. PSAX 4mm and 4-chamber RA area 9 mm. Conclusions 1.Trivial effusion which now appears smaller than 05/21/17. PSAX 4mm and 4-chamber RA area 9 mm. Electronically Signed By: Chaitanya Trujillo 23-May-2017 15:56:50 -0800 Patient Name: YOLY FOLEY Study Date: 22-May-2017 [id number]
--- NOTE | 2017-05-23 15:59 | RADRPT ---
Echocardiogram Report Patient Name: YOLY FOLEY Gender: Female Date: 1955 Study Date: 21-May-2017 Advertising Dispatch Clerk: PASHA Location: I Ref. Physician: ELICEO VELAZQUEZ Quality: Adequate Procedures: Transthoracic echocardiogram examination. Follow up for pericardial effusion size, S/P pericardiocentesis. Indications: Pericardial Effusion, S/P pericardiocentesis on 05/20/17. Findings Pericardium: Trivial to small effusion. In the 4-chamber view the effusion measures 13mm, seen only in right atrial area. In the parasternal long and short LV the effusion measures 9mm. No obvious echocardiographic evidence to suggest pericardial tamponade, IVC appears to collapse normally and head do not appear to collapse. IVC: Normal inferior vena cava appearance and respiratory collapse. Conclusions 1.small pericardial effusion effusion. In the 4-chamber view the effusion measures 13mm, seen only in right atrial area. In the parasternal long and short LV the effusion measures 9mm. No obvious echocardiographic evidence to suggest pericardial tamponade, IVC appears to collapse normally and head do not appear to collapse. Electronically Signed By: Chaitanya Trujillo 23-May-2017 15:58:48 -0800 Patient Name: YOLY FOLEY Study Date: 21-May-2017 [id number]
[2017-05-24] VITALS (13 sets, daily range): BP systolic 141–170; BP diastolic 71–89; PULSE 74–107; RESP 17–19
[2017-05-24] MEDS: PIPER-TAZO 3.375 GM IV (PMX) 50 ML IVPB SCH ×4 (00:23→17:27)
[2017-05-24] MEDS: ALBUTEROL/IPRATROPIUM (NEB) 3 ML AMP HHN SCH ×4 (02:00→20:48)
[2017-05-24 07:16] LABS: BASOPHILS % 0.3 % (0.0-2.0); EOSINOPHILS # 0.4 10^3/ul (0.0-0.5); EOSINOPHILS % 4.6 % (0.0-7.0); HEMATOCRIT 35.2 % (37.0-47.0); HEMOGLOBIN 11.7 g/dl (12.0-16.0); LYMPHOCYTES # 2.8 10^3/ul (0.8-2.9); LYMPHOCYTES % 30.7 % (15.0-51.0); MEAN CORPUSCULAR HEMOGLOBIN 29.1 pg (29.0-33.0); MEAN CORPUSCULAR HGB CONC 33.2 g/dl (32.0-37.0); MEAN CORPUSCULAR VOLUME 87.6 fl (82.0-101.0); MEAN PLATELET VOLUME 9.4 fl (7.4-10.4); MONOCYTE # 0.5 10^3/ul (0.3-0.9); MONOCYTES % 5.2 % (0.0-11.0); NEUTROPHIL # 5.3 10^3/ul (1.6-7.5); NEUTROPHILS % 58.6 % (39.0-77.0); PLATELET COUNT 357 10^3/UL (140-415); RED BLOOD COUNT 4.02 10^6/ul (4.20-5.40); RED CELL DISTRIBUTION WIDTH 13.1 % (11.5-14.5); WHITE BLOOD COUNT 9.1 10^3/ul (4.8-10.8)
[2017-05-24 07:34] LABS: CALCIUM 8.6 mg/dl (8.4-10.2); CREATININE 0.61 mg/dl (0.44-1.00); POTASSIUM 3.8 mmol/L (3.5-5.1)
[2017-05-24] MEDS: ENOXAPARIN 40 MG/0.4 ML SYG SC SCH (08:38)
--- NOTE | 2017-05-24 15:34 | CONS ---
Date/Time of Note Date/Time of Note DATE: 05/24/17 TIME: 15:33 Consult Date/Type/Reason Admit Date/Time May 19, 2017 at 13:22 Type of Consultation: Pulmonary Subjective Continues to slowly improve. Objective Vital Signs Date Time Temp Pulse Resp B/P Pulse Ox O2 Delivery O2 Flow Rate FiO2 05/24/17 15:24 97.7 83 17 141/71 90 05/24/17 14:01 21 05/23/17 18:00 Nasal Cannula 3.0 Intake and Output 05/23/17 05/23/17 05/24/17 15:00 23:00 07:00 Intake Total 500 ml 400 ml 250 ml Balance 500 ml 400 ml 250 ml Exam PHYSICAL EXAMINATION: GENERAL: Well-nourished, well-developed lady, comfortable at rest on cannula oxygen NECK: Supple, no JVD or lymphadenopathy. CARDIAC: S1, S2, no added sounds or murmurs. CHEST: Diminished air entry bilaterally. ABDOMEN: Soft, nontender. No guarding or rebound. EXTREMITIES: No cyanosis, clubbing, 1+ edema. NEUROLOGIC: Generalized weakness. Results/Medications Result Diagram: 05/24/17 0635 05/24/17 0635 Results 24 hrs Laboratory Tests Test 05/24/17 06:35 White Blood Count 9.1 Red Blood Count 4.02 L Hemoglobin 11.7 L Hematocrit 35.2 L Mean Corpuscular Volume 87.6 Mean Corpuscular Hemoglobin 29.1 Mean Corpuscular Hemoglobin Concent 33.2 Red Cell Distribution Width 13.1 Platelet Count 357 Mean Platelet Volume 9.4 Neutrophils % 58.6 Lymphocytes % 30.7 Monocytes % 5.2 Eosinophils % 4.6 Basophils % 0.3 Nucleated Red Blood Cells % 0.0 Neutrophils # 5.3 Lymphocytes # 2.8 Monocytes # 0.5 Eosinophils # 0.4 Basophils # 0.0 Nucleated Red Blood Cells # 0.0 Sodium Level 139 Potassium Level 3.8 Chloride Level 103 Carbon Dioxide Level 31 Anion Gap 9 Blood Urea Nitrogen 10 Creatinine 0.61 Glucose Level 118 Calcium Level 8.6 Medications Current Medications Ondansetron HCl (Zofran Inj) 4 mg Q6H PRN IV NAUSEA AND/OR VOMITING; Start 05/19/17 at 16:00 Acetaminophen (Tylenol Tab) 650 mg Q4H PRN PO PAIN AND OR ELEVATED TEMP Last administered on 05/24/17 02:15; Admin Dose 650 MG; Start 05/19/17 at 16:00 Morphine Sulfate (morphine) 2 mg Q3H PRN IV PAIN LEVEL 4-7; Start 05/19/17 at 16:00 Enoxaparin Sodium 40 mg 40 mg DAILY SC Last administered on 05/24/17 08:38; Admin Dose 40 MG; Start 05/20/17 at 09:00 Piperacillin Sod/ Tazobactam Sod (Zosyn 3.375gm/ 50 ml (Pmx)) 50 ml @ 100 mls/ hr Q6 IVPB Last administered on 05/24/17 11:16; Admin Dose 100 MLS/HR; Start 05/20/17 at 00:00 Assessment/Plan Chief Complaint/Hosp Course Assessment 1. Status post laparoscopic cholecystectomy 2. Postoperative hypoxemic respiratory failure with bibasilar atelectasis, improving hypoxemic respiratory failure. 3. Moderate pericardial effusion without tamponade physiology status post pericardial drainage Plan 1. Cardiology recommendations post pericardial drainage 2. Encourage out of bed 3. Decrease O2 as tolerated Problems: STEPHANI RILEY MD, [facility] May 24, 2017 15:34
--- NOTE | 2017-05-24 16:49 | PN ---
Date/Time of Note Date/Time of Note DATE: 05/24/17 TIME: 16:46 Assessment/Plan VTE Prophylaxis VTE Prophylaxis Intervention: SCD's Lines/Catheters IV [facility]from [facility] Saline Lock Urinary Cath still in place: No Assessment/Plan Chief Complaint/Hosp Course Patient denies any chest pain denies shortness of breath. Continue to monitor oxygen saturation, encourage patient to get out of bed. Follow-up cardiology recommendations. Assessment/Plan -Postoperative hypoxemic respiratory failure. CTA is negative for PE. Dr. Eng is following in pulmonology consultation. -Moderate pericardial effusion, status post pericardial drainage on 05/21. Dr. Alaniz is following patient in cardiology consultation. -Status post laparoscopic cholecystectomy by Dr. Escalera on 05/19. -Permanent pacemaker, no acute issues Further recommendations based on clinical course. Plan of care discussed with Dr. Mccullough. Problems: Exam/Review of Systems Vital Signs Vitals Vital Signs Date Time Temp Pulse Resp B/P Pulse Ox O2 Delivery O2 Flow Rate FiO2 05/24/17 16:12 97 05/24/17 15:24 97.7 17 141/71 90 05/24/17 14:01 21 05/23/17 18:00 Nasal Cannula 3.0 Intake and Output 05/23/17 05/23/17 05/24/17 15:00 23:00 07:00 Intake Total 500 ml 400 ml 250 ml Balance 500 ml 400 ml 250 ml Exam Constitutional: alert, oriented Respiratory: diminished breath sounds Cardiovascular: nl pulses, regular rate and rhythm Gastrointestinal: other (Status post surgery), soft Extremities: normal pulses Results Result Diagram: 05/24/17 0635 05/24/17 0635 Results 24 hrs Laboratory Tests Test 05/24/17 06:35 White Blood Count 9.1 Red Blood Count 4.02 L Hemoglobin 11.7 L Hematocrit 35.2 L Mean Corpuscular Volume 87.6 Mean Corpuscular Hemoglobin 29.1 Mean Corpuscular Hemoglobin Concent 33.2 Red Cell Distribution Width 13.1 Platelet Count 357 Mean Platelet Volume 9.4 Neutrophils % 58.6 Lymphocytes % 30.7 Monocytes % 5.2 Eosinophils % 4.6 Basophils % 0.3 Nucleated Red Blood Cells % 0.0 Neutrophils # 5.3 Lymphocytes # 2.8 Monocytes # 0.5 Eosinophils # 0.4 Basophils # 0.0 Nucleated Red Blood Cells # 0.0 Sodium Level 139 Potassium Level 3.8 Chloride Level 103 Carbon Dioxide Level 31 Anion Gap 9 Blood Urea Nitrogen 10 Creatinine 0.61 Glucose Level 118 Calcium Level 8.6 Medications Medications Current Medications Ondansetron HCl (Zofran Inj) 4 mg Q6H PRN IV NAUSEA AND/OR VOMITING; Start 05/19/17 at 16:00 Acetaminophen (Tylenol Tab) 650 mg Q4H PRN PO PAIN AND OR ELEVATED TEMP Last administered on 05/24/17 02:15; Admin Dose 650 MG; Start 05/19/17 at 16:00 Morphine Sulfate (morphine) 2 mg Q3H PRN IV PAIN LEVEL 4-7; Start 05/19/17 at 16:00 Enoxaparin Sodium 40 mg 40 mg DAILY SC Last administered on 05/24/17 08:38; Admin Dose 40 MG; Start 05/20/17 at 09:00 Piperacillin Sod/ Tazobactam Sod (Zosyn 3.375gm/ 50 ml (Pmx)) 50 ml @ 100 mls/ hr Q6 IVPB Last administered on 05/24/17 11:16; Admin Dose 100 MLS/HR; Start 05/20/17 at 00:00 FRANKIE JOHN May 24, 2017 16:49
[2017-05-25] VITALS (13 sets, daily range): BP systolic 131–155; BP diastolic 64–82; PULSE 70–98; RESP 17–20
[2017-05-25] MEDS: PIPER-TAZO 3.375 GM IV (PMX) 50 ML IVPB SCH ×5 (00:03→23:12)
[2017-05-25] MEDS: ALBUTEROL/IPRATROPIUM (NEB) 3 ML AMP HHN SCH ×4 (01:25→20:02)
[2017-05-25 08:18] LABS: BASOPHILS % 0.4 % (0.0-2.0); EOSINOPHILS # 0.5 10^3/ul (0.0-0.5); EOSINOPHILS % 4.9 % (0.0-7.0); HEMATOCRIT 34.8 % (37.0-47.0); HEMOGLOBIN 11.7 g/dl (12.0-16.0); LYMPHOCYTES # 2.6 10^3/ul (0.8-2.9); LYMPHOCYTES % 25.1 % (15.0-51.0); MEAN CORPUSCULAR HEMOGLOBIN 29.3 pg (29.0-33.0); MEAN CORPUSCULAR HGB CONC 33.6 g/dl (32.0-37.0); MEAN CORPUSCULAR VOLUME 87.2 fl (82.0-101.0); MEAN PLATELET VOLUME 9.4 fl (7.4-10.4); MONOCYTE # 0.5 10^3/ul (0.3-0.9); MONOCYTES % 5.1 % (0.0-11.0); NEUTROPHIL # 6.5 10^3/ul (1.6-7.5); NEUTROPHILS % 63.9 % (39.0-77.0); PLATELET COUNT 347 10^3/UL (140-415); RED BLOOD COUNT 3.99 10^6/ul (4.20-5.40); RED CELL DISTRIBUTION WIDTH 13.2 % (11.5-14.5); WHITE BLOOD COUNT 10.2 10^3/ul (4.8-10.8)
[2017-05-25 08:51] LABS: CALCIUM 8.5 mg/dl (8.4-10.2); CREATININE 0.74 mg/dl (0.44-1.00); POTASSIUM 3.9 mmol/L (3.5-5.1)
[2017-05-25] MEDS: ENOXAPARIN 40 MG/0.4 ML SYG SC SCH (08:52)
--- NOTE | 2017-05-25 11:40 | CONS ---
Date/Time of Note Date/Time of Note DATE: 05/25/17 TIME: 11:39 Consult Date/Type/Reason Admit Date/Time May 19, 2017 at 13:22 Type of Consultation: Pulmonary Subjective Patient comfortable. No new events. Objective Vital Signs Date Time Temp Pulse Resp B/P Pulse Ox O2 Delivery O2 Flow Rate FiO2 05/25/17 11:37 97.9 87 17 131/64 92 05/25/17 08:58 2.0 28 05/23/17 18:00 Nasal Cannula Intake and Output 05/24/17 05/24/17 05/25/17 14:59 22:59 06:59 Intake Total 800 ml 250 ml Balance 800 ml 250 ml Exam PHYSICAL EXAMINATION: GENERAL: Well-nourished, well-developed lady, comfortable at rest on cannula oxygen NECK: Supple, no JVD or lymphadenopathy. CARDIAC: S1, S2, no added sounds or murmurs. CHEST: Diminished air entry bilaterally. ABDOMEN: Soft, nontender. No guarding or rebound. EXTREMITIES: No cyanosis, clubbing, 1+ edema. NEUROLOGIC: Generalized weakness. Results/Medications Result Diagram: 05/25/17 0756 05/25/17 0756 Results 24 hrs Laboratory Tests Test 05/25/17 07:56 White Blood Count 10.2 Red Blood Count 3.99 L Hemoglobin 11.7 L Hematocrit 34.8 L Mean Corpuscular Volume 87.2 Mean Corpuscular Hemoglobin 29.3 Mean Corpuscular Hemoglobin Concent 33.6 Red Cell Distribution Width 13.2 Platelet Count 347 Mean Platelet Volume 9.4 Neutrophils % 63.9 Lymphocytes % 25.1 Monocytes % 5.1 Eosinophils % 4.9 Basophils % 0.4 Nucleated Red Blood Cells % 0.0 Neutrophils # 6.5 Lymphocytes # 2.6 Monocytes # 0.5 Eosinophils # 0.5 Basophils # 0.0 Nucleated Red Blood Cells # 0.0 Sodium Level 141 Potassium Level 3.9 Chloride Level 103 Carbon Dioxide Level 30 Anion Gap 12 Blood Urea Nitrogen 11 Creatinine 0.74 Glucose Level 126 Calcium Level 8.5 Medications Current Medications Ondansetron HCl (Zofran Inj) 4 mg Q6H PRN IV NAUSEA AND/OR VOMITING; Start 05/19/17 at 16:00 Acetaminophen (Tylenol Tab) 650 mg Q4H PRN PO PAIN AND OR ELEVATED TEMP Last administered on 05/24/17 02:15; Admin Dose 650 MG; Start 05/19/17 at 16:00 Morphine Sulfate (morphine) 2 mg Q3H PRN IV PAIN LEVEL 4-7; Start 05/19/17 at 16:00 Enoxaparin Sodium 40 mg 40 mg DAILY SC Last administered on 05/25/17 08:52; Admin Dose 40 MG; Start 05/20/17 at 09:00 Piperacillin Sod/ Tazobactam Sod (Zosyn 3.375gm/ 50 ml (Pmx)) 50 ml @ 100 mls/ hr Q6 IVPB Last administered on 05/25/17 11:24; Admin Dose 100 MLS/HR; Start 05/20/17 at 00:00 Assessment/Plan Chief Complaint/Hosp Course Assessment 1. Status post laparoscopic cholecystectomy 2. Postoperative hypoxemic respiratory failure with bibasilar atelectasis, improving hypoxemic respiratory failure. 3. Moderate pericardial effusion without tamponade physiology status post pericardial drainage Plan 1. Cardiology recommendations post pericardial drainage 2. Encourage out of bed 3. Ambulate on room air if tolerated DC planning okay from pulmonary standpoint Problems: STEPH[facility] RILEY [facility] May 25, 2017 11:40
--- NOTE | 2017-05-25 14:45 | PN ---
Date/Time of Note Date/Time of Note DATE: 05/25/17 TIME: 14:44 Assessment/Plan VTE Prophylaxis VTE Prophylaxis Intervention: SCD's Lines/Catheters IV Catheter Type (from [facility]): [facility] Urinary Cath still in place: No Assessment/Plan Chief Complaint/Hosp Course Patient complains of shortness of breath on exertion, desaturates with activities, comfortable at rest. Assessment/Plan -Postoperative hypoxemic respiratory failure. CTA is negative for PE. Dr. Eng is following in pulmonology consultation. -Moderate pericardial effusion, status post pericardial drainage on 05/21. Dr. Alaniz is following patient in cardiology consultation. -Status post laparoscopic cholecystectomy by Dr. Escalera on 05/19. -Permanent pacemaker, no acute issues Further recommendations based on clinical course. Plan of care discussed with Dr. Mccullough. Problems: Exam/Review of Systems Vital Signs Vitals Vital Signs Date Time Temp Pulse Resp B/P Pulse Ox O2 Delivery O2 Flow Rate FiO2 05/25/17 13:55 88 18 94 21 05/25/17 11:37 97.9 131/64 05/25/17 08:58 2.0 05/23/17 18:00 Nasal Cannula Intake and Output 05/24/17 05/24/17 05/25/17 15:00 23:00 07:00 Intake Total 800 ml 250 ml Balance 800 ml 250 ml Exam Constitutional: alert, oriented Respiratory: diminished breath sounds Cardiovascular: nl pulses, regular rate and rhythm Gastrointestinal: other (Status post surgery), soft Extremities: normal pulses Results Result Diagram: 05/25/17 0756 05/25/17 0756 Results 24 hrs Laboratory Tests Test 05/25/17 07:56 White Blood Count 10.2 Red Blood Count 3.99 L Hemoglobin 11.7 L Hematocrit 34.8 L Mean Corpuscular Volume 87.2 Mean Corpuscular Hemoglobin 29.3 Mean Corpuscular Hemoglobin Concent 33.6 Red Cell Distribution Width 13.2 Platelet Count 347 Mean Platelet Volume 9.4 Neutrophils % 63.9 Lymphocytes % 25.1 Monocytes % 5.1 Eosinophils % 4.9 Basophils % 0.4 Nucleated Red Blood Cells % 0.0 Neutrophils # 6.5 Lymphocytes # 2.6 Monocytes # 0.5 Eosinophils # 0.5 Basophils # 0.0 Nucleated Red Blood Cells # 0.0 Sodium Level 141 Potassium Level 3.9 Chloride Level 103 Carbon Dioxide Level 30 Anion Gap 12 Blood Urea Nitrogen 11 Creatinine 0.74 Glucose Level 126 Calcium Level 8.5 Medications Medications Current Medications Ondansetron HCl (Zofran Inj) 4 mg Q6H PRN IV NAUSEA AND/OR VOMITING; Start 05/19/17 at 16:00 Acetaminophen (Tylenol Tab) 650 mg Q4H PRN PO PAIN AND OR ELEVATED TEMP Last administered on 05/24/17 02:15; Admin Dose 650 MG; Start 05/19/17 at 16:00 Morphine Sulfate (morphine) 2 mg Q3H PRN IV PAIN LEVEL 4-7; Start 05/19/17 at 16:00 Enoxaparin Sodium 40 mg 40 mg DAILY SC Last administered on 05/25/17 08:52; Admin Dose 40 MG; Start 05/20/17 at 09:00 Piperacillin Sod/ Tazobactam Sod (Zosyn 3.375gm/ 50 ml (Pmx)) 50 ml @ 100 mls/ hr Q6 IVPB Last administered on 05/25/17 11:24; Admin Dose 100 MLS/HR; Start 05/20/17 at 00:00 FRANKIE JOHN May 25, 2017 14:45
--- NOTE | 2017-05-25 20:15 | CONS ---
Date/Time of Note Date/Time of Note DATE: 05/25/17 TIME: 20:14 Assessment/Plan Assessment/Plan Chief Complaint/Hosp Course I was recommeded to do a pericardiocenthesis. the risks and benefts explained. 05/21/2017 The pt is doing well reviewed the echo and removed the pericardial tube. 05/25/2017 The pt is seen an examined doing well OK for discharge home in AM from a Cardiology point of view. Problems: Consultation Date/Type/Reason Admit Date/Time May 19, 2017 at 13:22 Initial Consult Date yesterdday Type of Consultation: Pulmonary 24 HR Interval Summary Free Text/Dictation The pt is doing better No cp or sob now. walking in the hallways. Exam/Review of Systems Vital Signs Vitals Vital Signs Date Time Temp Pulse Resp B/P Pulse Ox O2 Delivery O2 Flow Rate FiO2 05/25/17 20:03 96 21 05/25/17 20:03 83 20 05/25/17 19:44 97.9 153/82 05/25/17 08:58 2.0 05/23/17 18:00 Nasal Cannula Intake and Output 05/24/17 05/24/17 05/25/17 15:00 23:00 07:00 Intake Total 800 ml 250 ml Balance 800 ml 250 ml Results Result Diagram: 05/25/17 0756 05/25/17 0756 Results 24 hrs Laboratory Tests Test 05/25/17 07:56 White Blood Count 10.2 Red Blood Count 3.99 L Hemoglobin 11.7 L Hematocrit 34.8 L Mean Corpuscular Volume 87.2 Mean Corpuscular Hemoglobin 29.3 Mean Corpuscular Hemoglobin Concent 33.6 Red Cell Distribution Width 13.2 Platelet Count 347 Mean Platelet Volume 9.4 Neutrophils % 63.9 Lymphocytes % 25.1 Monocytes % 5.1 Eosinophils % 4.9 Basophils % 0.4 Nucleated Red Blood Cells % 0.0 Neutrophils # 6.5 Lymphocytes # 2.6 Monocytes # 0.5 Eosinophils # 0.5 Basophils # 0.0 Nucleated Red Blood Cells # 0.0 Sodium Level 141 Potassium Level 3.9 Chloride Level 103 Carbon Dioxide Level 30 Anion Gap 12 Blood Urea Nitrogen 11 Creatinine 0.74 Glucose Level 126 Calcium Level 8.5 Medications Medications Current Medications Ondansetron HCl (Zofran Inj) 4 mg Q6H PRN IV NAUSEA AND/OR VOMITING; Start 05/19/17 at 16:00 Acetaminophen (Tylenol Tab) 650 mg Q4H PRN PO PAIN AND OR ELEVATED TEMP Last administered on 05/24/17 02:15; Admin Dose 650 MG; Start 05/19/17 at 16:00 Morphine Sulfate (morphine) 2 mg Q3H PRN IV PAIN LEVEL 4-7; Start 05/19/17 at 16:00 Enoxaparin Sodium 40 mg 40 mg DAILY SC Last administered on 05/25/17 08:52; Admin Dose 40 MG; Start 05/20/17 at 09:00 Piperacillin Sod/ Tazobactam Sod (Zosyn 3.375gm/ 50 ml (Pmx)) 50 ml @ 100 mls/ hr Q6 IVPB Last administered on 05/25/17 17:23; Admin Dose 100 MLS/HR; Start 05/20/17 at 00:00 ELICEO VELAZQUEZ MD May 25, 2017 20:15
[2017-05-26] VITALS (7 sets, daily range): BP systolic 144–158; BP diastolic 77–86; PULSE 83–90; RESP 20–21
[2017-05-26] MEDS: ALBUTEROL/IPRATROPIUM (NEB) 3 ML AMP HHN SCH ×3 (02:00→12:59)
[2017-05-26 04:36] LABS: BODY FLUID Pericardial fluid
[2017-05-26] MEDS: PIPER-TAZO 3.375 GM IV (PMX) 50 ML IVPB SCH ×2 (06:26→11:57)
[2017-05-26 06:27] LABS: BASOPHILS % 0.4 % (0.0-2.0); EOSINOPHILS # 0.5 10^3/ul (0.0-0.5); EOSINOPHILS % 4.5 % (0.0-7.0); HEMATOCRIT 33.6 % (37.0-47.0); HEMOGLOBIN 11.2 g/dl (12.0-16.0); LYMPHOCYTES # 2.6 10^3/ul (0.8-2.9); LYMPHOCYTES % 22.8 % (15.0-51.0); MEAN CORPUSCULAR HEMOGLOBIN 29.2 pg (29.0-33.0); MEAN CORPUSCULAR HGB CONC 33.3 g/dl (32.0-37.0); MEAN CORPUSCULAR VOLUME 87.7 fl (82.0-101.0); MEAN PLATELET VOLUME 9.4 fl (7.4-10.4); MONOCYTE # 0.7 10^3/ul (0.3-0.9); MONOCYTES % 5.9 % (0.0-11.0); NEUTROPHIL # 7.3 10^3/ul (1.6-7.5); NEUTROPHILS % 65.8 % (39.0-77.0); NUCLEATED RED BLOOD CELLS # 0.1 10^3/ul (0.0-0.0); NUCLEATED RED BLOOD CELLS% 0.5 /100WBC (0.0-0.0); PLATELET COUNT 338 10^3/UL (140-415); RED BLOOD COUNT 3.83 10^6/ul (4.20-5.40); RED CELL DISTRIBUTION WIDTH 13.3 % (11.5-14.5); WHITE BLOOD COUNT 11.2 10^3/ul (4.8-10.8)
[2017-05-26 06:51] LABS: CALCIUM 8.8 mg/dl (8.4-10.2); CREATININE 0.71 mg/dl (0.44-1.00); POTASSIUM 4.2 mmol/L (3.5-5.1)
[2017-05-26] MEDS: ENOXAPARIN 40 MG/0.4 ML SYG SC SCH (10:22)
[2017-05-26] MEDS ORDERED: LEVO500T10 PO (11:11)
--- NOTE | 2017-05-26 11:46 | CONS ---
Date/Time of Note Date/Time of Note DATE: 05/26/17 TIME: 11:44 Consult Date/Type/Reason Admit Date/Time May 19, 2017 at 13:22 Type of Consultation: Pulmonary Subjective Comfortable. No shortness of breath no chest pain. Ambulating without discomfort. Objective Vital Signs Date Time Temp Pulse Resp B/P Pulse Ox O2 Delivery O2 Flow Rate FiO2 05/26/17 11: 97.8 85 20 153/85 98 05/26/17 02:29 21 05/25/17 08:58 2.0 05/23/17 18:00 Nasal Cannula Intake and Output 05/25/17 05/25/17 05/26/17 14:59 22:59 06:59 Intake Total 50 ml 50 ml 500 ml Balance 50 ml 50 ml 500 ml Exam PHYSICAL EXAMINATION: GENERAL: Well-nourished, well-developed lady, comfortable at rest on cannula oxygen NECK: Supple, no JVD or lymphadenopathy. CARDIAC: S1, S2, no added sounds or murmurs. CHEST: Diminished air entry bilaterally. ABDOMEN: Soft, nontender. No guarding or rebound. EXTREMITIES: No cyanosis, clubbing, 1+ edema. NEUROLOGIC: Generalized weakness. Results/Medications Result Diagram: 05/26/17 0556 05/26/17 0556 Results 24 hrs Laboratory Tests Test 05/26/17 05:56 White Blood Count 11.2 H Red Blood Count 3.83 L Hemoglobin 11.2 L Hematocrit 33.6 L Mean Corpuscular Volume 87.7 Mean Corpuscular Hemoglobin 29.2 Mean Corpuscular Hemoglobin Concent 33.3 Red Cell Distribution Width 13.3 Platelet Count 338 Mean Platelet Volume 9.4 Neutrophils % 65.8 Lymphocytes % 22.8 Monocytes % 5.9 Eosinophils % 4.5 Basophils % 0.4 Nucleated Red Blood Cells % 0.5 H Neutrophils # 7.3 Lymphocytes # 2.6 Monocytes # 0.7 Eosinophils # 0.5 Basophils # 0.0 Nucleated Red Blood Cells # 0.1 H Sodium Level 141 Potassium Level 4.2 Chloride Level 104 Carbon Dioxide Level 29 Anion Gap 12 Blood Urea Nitrogen 10 Creatinine 0.71 Glucose Level 135 Calcium Level 8.8 Medications Current Medications Ondansetron HCl (Zofran Inj) 4 mg Q6H PRN IV NAUSEA AND/OR VOMITING; Start 05/19/17 at 16:00 Acetaminophen (Tylenol Tab) 650 mg Q4H PRN PO PAIN AND OR ELEVATED TEMP Last administered on 05/24/17 02:15; Admin Dose 650 MG; Start 05/19/17 at 16:00 Morphine Sulfate (morphine) 2 mg Q3H PRN IV PAIN LEVEL 4-7; Start 05/19/17 at 16:00 Enoxaparin Sodium 40 mg 40 mg DAILY SC Last administered on 05/26/17 10:22; Admin Dose 40 MG; Start 05/20/17 at 09:00 Piperacillin Sod/ Tazobactam Sod (Zosyn 3.375gm/ 50 ml (Pmx)) 50 ml @ 100 mls/ hr Q6 IVPB Last administered on 05/26/17 06:26; Admin Dose 100 MLS/HR; Start 05/20/17 at 00:00 Assessment/Plan Chief Complaint/Hosp Course Assessment 1. Status post laparoscopic cholecystectomy 2. Postoperative hypoxemic respiratory failure with bibasilar atelectasis, resolved hypoxemic respiratory failure. 3. Moderate pericardial effusion without tamponade physiology status post pericardial drainage. No evidence of recurrence. Plan 1. Cardiology recommendations post pericardial drainage 2. Encourage out of bed DC planning okay from pulmonary standpoint Problems: STEPHANI RILEY [facility], [facility] May 26, 2017 11:46
--- NOTE | 2017-05-27 20:34 | DS ---
Date/Time of Note Date/Time of Note DATE: 05/27/17 TIME: 20:30 Discharge Summary Admission/Discharge Info Admit Date/Time May 19, 2017 at 13:22 Discharge Date/Time May 26, 2017 at 13:35 Patient Condition: Stable Hx of Present Illness The patient is a 62-year-old female with history of hypertension, dyslipidemia, and history of pacemaker placement. The patient has preserved LV function as far as 2D echocardiogram is concerned back in 2013. Current echo report is not available. The patient was brought into hospital today for elective laparoscopic cholecystectomy. The patient underwent laparoscopic cholecystectomy by Dr. Escalera. Postoperatively, the patient developed hypoxemia, tachycardia and was transferred to telemetry unit. The patient denies any chest pain. Does appear short of breath and was given Lasix 10 mg and also breathing treatment. The patient has not had any temperature spike. No reported vomiting. No reported resting leg pain. No report of any acute skin rash. No wheezing. The patient denies cough. No focal weakness. The patient underwent chest x-ray, which revealed mild basilar atelectasis. The patient is being admitted for further evaluation and management. Hospital Course -Postoperative hypoxemic respiratory failure. CTA is negative for PE. Dr. Eng is following in pulmonology consultation. -Moderate pericardial effusion per Echo, status post pericardial drainage on . Cx is negative. Dr. Alaniz is following patient in cardiology consultation. -Status post laparoscopic cholecystectomy by Dr. Escalera on 05/19. -Permanent pacemaker, no acute issues Home Meds Active Scripts Levofloxacin* (Levofloxacin*) 500 Mg Tablet, 500 MG PO DAILY for 7 Days, TAB Prov:FRANKIE JOHN 05/26/17 Reported Medications Verapamil Hcl* (Verapamil ER*) 120 Mg Cap24h.pel, 120 MG PO DAILY, CAP 05/19/17 Omeprazole* (Omeprazole*) 40 Mg Capsule.dr, 40 MG PO DAILY, #30 CAP 05/19/17 Losartan-Hydrochlorothiazide (Losartan-HCTZ) 100-12.5 Mg Tab, 1 TAB PO DAILY, TAB 05/19/17 Aspirin (Low Dose Aspirin) 81 Mg Tablet.dr, 81 MG PO DAILY, #30 TAB 05/19/17 Ibuprofen* (Motrin*) 600 Mg Tab, 600 MG PO Q4 Y for PAIN, TAB 11/9/17 Simvastatin* (Zocor*) 40 Mg Tablet, 40 MG PO HS, TAB 06/09/14 Atenolol* (Atenolol*) 50 Mg Tablet, 50 MG PO DAILY, TAB 06/09/14 Follow-up Plan f/up with Dr Decker in 1 week, f/up with Dr Escalera in 1 week. Primary Care Provider FRANKIE Fine May 27, 2017 20:34
== END 2017-05-26 13:35 | disposition home or self-care (01) | DRG 417 ==
LOC: SDS 08:08 → TEL 13:22 → SDS 13:22 → TEL 14:50 → ICU 22:06 → TEL 05-23 19:35
PROVIDERS: ADMIT Surgery; ATTEND Surgery
PROC: 0FT44ZZ Resection of Gallbladder, Percutaneous Endoscopic Approach (ICD-10-PCS; principal; 2017-05-19 11:00)
PROC: 0W9D30Z Drainage of Pericardial Cavity with Drainage Device, Percutaneous Approach (ICD-10-PCS; 2017-05-20)
DX: K80.80 Other cholelithiasis without obstruction (principal); J95.821 Acute postprocedural respiratory failure; I31.3 Pericardial effusion (noninflammatory); I10 Essential (primary) hypertension; E78.5 Hyperlipidemia, unspecified; Z95.0 Presence of cardiac pacemaker
CPT/HCPCS: 33010; 36600; 71010; 71275; 80048; 80053; 82803; 83735; 83880; 83986; 84100; 84443; 84484; 85025; 87070; 87081; 87102; 87116; 87252; 88304; 93306; 93308; 94640; 94664; 94668; 97161; J1940; C1887; C1894; J0360; J0690; J1650; J2175; J2250; J2405; J2543; J2710; J2930; J3010; J7040; J7512; Q9967

== ENCOUNTER 2017-11-22 07:31 | Day surgery (SDC) | END 2017-11-22 15:13 | disposition home or self-care (01) ==

== ENCOUNTER 2018-05-18 20:02 | Inpatient (IN) | END 2018-05-19 18:57 | disposition home or self-care (01) | DRG 312 ==